=== PATIENT | male | born 1995 | race Caucasian/White ===

== ENCOUNTER 2016-09-13 16:35 | Emergency (ER) | payer BC, OTHER ==
[2016-09-13 17:05] VITALS: BP 127/77
--- NOTE | 2016-09-13 17:46 | EDM.PDOC ---
ED HPI GENERAL MEDICAL PROBLEM - General Chief Complaint: ENT Problem Stated Complaint: SWELLING OF MOUTH AFTER EATING Time Seen by Provider: 09/13/16 17:26 Source of Information: Reports: Patient History Limitations: Reports: No Limitations - History of Present Illness INITIAL COMMENTS - FREE TEXT/NARRATIVE: 21-year-old male presents for evaluation and treatment of swelling and discomfort in his mouth and throat. He states that the symptoms started today. He states that he feels the right side is worse than the left. He reports swelling to the hard palate of his mouth. He reports odynophagia. He feels that there is a sore on the roof of his mouth. He also feels that his throat is swelling. He denies any wheezing, difficulty breathing, fevers, chills, nausea or vomiting. Patient is a type I diabetic on insulin pump. He states that his sugars have been running in the 170s to 180s. Patient denies any new foods or fluids. Unidentified cause for the discomfort. Throat Pain Score (Numeric/FACES): 3 - Related Data Allergies Allergy/AdvReac Type Severity Reaction Status Date / Time No Known Allergies Allergy Verified 09/13/16 17:05 Home Meds: Home Meds Insulin Lispro [Humalog] 100 unit SQ DAILY 06/10/14 [History] Diphenhyd/Lidocaine/Nystatin [Magic Mouthwash] 15 ml PO QID #1 bottle 09/13/16 [ Rx] Hydrocodone/Acetaminophen [Hydrocodon-Acetaminophn 10-325] 1 tab PO TID [History] Methylphenidate [Ritalin] 20 mg PO DAILY 09/13/16 [History] Past Medical History Psychiatric History: Reports: ADHD Endocrine/Metabolic History: Reports: Diabetes, type I - Past Surgical History Musculoskeletal Surgical History: Reports: Other (see below) Other Musculoskeletal Surgeries/Procedures:: 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 Social & Family History - Tobacco Use Smoking Status *Q: Current Every Day Smoker Years of Tobacco use: 6 Packs/Tins Daily: 0.5 - Caffeine Use Caffeine Use: Reports: Energy drinks - Alcohol Use Days Per Week of Alcohol Use: 0 - Recreational Drug Use Recreational Drug Use: Yes Drug Use in Last 12 Months: Yes Recreational Drug Type: Reports: Marijuana/Hashish Recreational Drug Use Frequency: Socially ED ROS ENT - Review of Systems Review Of Systems: See Below Constitutional: Denies: Fever HEENT: Reports: Throat Pain, Throat Swelling Respiratory: Denies: Shortness of Breath GI/Abdominal: Denies: Nausea, Vomiting ED EXAM, ENT - Physical Exam Exam: See Below Exam Limited By: No Limitations General Appearance: Alert, WD/WN, No Apparent Distress Ears: Normal External Exam Nose: Normal Inspection Mouth/Throat: Normal Inspection, Oral Ulcers (anterior hard palate). No: Lip Swelling, Muffled Voice, Peritonsillar Mass, Throat Swelling, Tongue Swelling, Uvular Edema Respiratory/Chest: No Respiratory Distress, Lungs Clear, Normal Breath Sounds Cardiovascular: Normal Peripheral Pulses, Regular Rate, Rhythm, No Murmur Neurological: Alert, Oriented, Normal Cognition Psychiatric: Normal Affect, Normal Mood Skin: Warm, Dry, Normal Color Course - Vital Signs Last Recorded V/S: Last Vital Signs Temp 36.8 C 09/13/16 17:03 Pulse 78 09/13/16 18:18 Resp 18 09/13/16 18:18 BP 127/77 09/13/16 17:03 Pulse Ox 98 09/13/16 18:18 Departure - Departure Time of Disposition: 17:49 Disposition: Home, Self-Care 01 Condition: fair Clinical Impression: Viral stomatitis - Discharge Information Prescriptions: Diphenhyd/Lidocaine/Nystatin [Magic Mouthwash] 15 ml PO QID #1 bottle Instructions: Stomatitis, [id number] Referrals: PCP,Not In Area [Primary Care Provider] - Forms: ED Department Discharge Additional Instructions: Swish and spit 15mls of the magic mouth wash. OTC ibuprofen as needed for pain. Follow-up next week with PCP as planned. Please return to the ER should your symptoms change or worsen.
== END 2016-09-13 18:18 | disposition home or self-care (01) ==
LOC: JD.ED 16:35
DX: K12.1 Other forms of stomatitis (principal); E10.9 Type 1 diabetes mellitus without complications; F17.210 Nicotine dependence, cigarettes, uncomplicated; Z98.890 Other specified postprocedural states; Z79.899 Other long term (current) drug therapy
CPT/HCPCS: 99282; 99283

== ENCOUNTER 2019-10-04 02:02 | Inpatient (IN) | payer BC, OTHER ==
[2019-10-04] MEDS ORDERED: Lactated Ringers 1,000 ML IV ONE ×3 (02:22→05:25)
[2019-10-04] MEDS ORDERED: Ondansetron 4 MG/2 ML SDV IVPUSH ONE (02:24)
--- NOTE | 2019-10-04 02:34 | EDM.PDOC ---
ED HPI GENERAL MEDICAL PROBLEM - General Chief Complaint: Chest Pain Stated Complaint: CHEST PAIN/VOMITING Time Seen by Provider: 10/04/19 02:13 Source of Information: Reports: Patient History Limitations: Reports: No Limitations, Altered Mental Status - History of Present Illness INITIAL COMMENTS - FREE TEXT/NARRATIVE: Mr. 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 He denies prior similar symptoms. He was initially unable to provide much history , as he was laying on the gurney grunting and calling out, as if in extreme pain due to an IV being placed. He repeatedly asked for water, and was repeatedly told that because of his nausea, we did not want to give him anything orally, but was reassured that he will be getting IV fluid. He then vomited, and was calm thereafter. The patient did not take any oxmd-[id number] or home remedies prior to coming to the ED. Upon arrival, he was found to be hemodynamically stable, afebrile, saturating 100% on room air. The initial Accu-Chek was >400. The patient states that he has a continuous glucose monitor, but that he does not use it. He checks his blood sugar only about once a month, but he states that his blood sugars are rarely significantly elevated. He states that he has had DKA only once, when around 19 years old. Other than his current symptoms, the patient denies recent fever, chills, sore throat, ear pain, nasal or sinus congestion, cough, dyspnea, chest pain, palpitations, nausea, vomiting, constipation, diarrhea, abdominal pain, urinary symptoms, recent weight gain or weight loss, recent bloody bowel movements or black bowel movements, recent joint aches, headaches, or rashes. The patient's PCP is Roya Oates NP, in [place], [place]. Chest Pain Score (Numeric/FACES): 10 - Related Data Allergies Allergy/AdvReac Type Severity Reaction Status Date / Time No Known Allergies Allergy Verified 10/04/19 02:49 Home Meds: Home Meds Insulin Lispro [Humalog] 100 unit SQ DAILY 06/10/14 [History] Diphenhyd/Lidocaine/Nystatin [Magic Mouthwash] 15 ml PO QID #1 bottle 09/13/16 [ Rx] Hydrocodone/Acetaminophen [Hydrocodon-Acetaminophn 10-325] 1 tab PO TID [History] Methylphenidate [Ritalin] 20 mg PO DAILY 09/13/16 [History] Past Medical History Musculoskeletal History: Reports: Back Pain, Chronic (due to kyphosis, due to Scheuermanns disease) Psychiatric History: Reports: ADHD Endocrine/Metabolic History: Reports: Diabetes, Type I - Past Surgical History GI Surgical History: Reports: Hernia, Inguinal (right) Musculoskeletal Surgical History: Reports: Other (See Below) (2 back surgeries secondary to defects) Social & Family History - Tobacco Use Smoking Status *Q: Current Every Day Smoker Years of Tobacco use: 10 Packs/Tins Daily: 1 - Caffeine Use Caffeine Use: Reports: Energy Drinks - Alcohol Use Alcohol Use History: Yes Date/Time of Last Drink Comment: Drank heavily until Mar 2019 Alcohol Use Frequency: Rarely - Recreational Drug Use Recreational Drug Use: Yes Drug Use in Last 12 Months: Yes Recreational Drug Type: Reports: Marijuana/Hashish (smoked daily) - Living Situation & Occupation Living situation: Reports: Single, with Family (Mother, sister) 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 ED EXAM GENERAL NO PERIP PULSE - Physical Exam Exam: See Below Exam Limited By: No Limitations General Appearance: Alert, WD/WN, Mild Distress Eye Exam: Bilateral Eye: EOMI, Normal Inspection Ears: Normal External Exam, Hearing Grossly Normal Nose: Normal Inspection Throat/Mouth: Normal Inspection, Normal Lips, Normal Voice, No Airway Compromise Head: Atraumatic, Normocephalic Neck: Normal Inspection, Full Range of Motion Respiratory/Chest: No Respiratory Distress, Lungs Clear, Normal Breath Sounds, No Accessory Muscle Use Cardiovascular: Normal Peripheral Pulses, Regular Rate, Rhythm, No Edema, No Gallop, No JVD, No Murmur, No Rub GI/Abdominal: Normal Bowel Sounds, Soft, Non-Tender, No Organomegaly, No Distention, No Abnormal Bruit, No Mass (Male) Exam: Deferred Rectal (Males) Exam: Deferred Back Exam: Normal Inspection, Full Range of Motion, NT Extremities: Normal Inspection, Normal Range of Motion, No Pedal Edema, Normal Capillary Refill Neurological: Alert, No Motor/Sensory Deficits (moves all 4 extremities spontaneously) Psychiatric: Other (Unable to assess) Skin Exam: Warm, Dry, Intact, Normal Color, No Rash Lymphatic: No Adenopathy EKG INTERPRETATION EKG Date: 10/04/19 Time: 02:25 Rhythm: NSR Rate (Beats/Min): 80 [place]: Normal P-Wave: Present QRS: Normal ST-T: Normal QT: Normal Comparison: NA - No Prior EKG Course - Vital Signs Last Recorded V/S: Last Vital Signs Temp 36.8 C 10/04/19 02:02 Pulse 58 L 10/04/19 02:02 Resp 24 H 10/04/19 02:02 BP 112/53 L 10/04/19 02:02 Pulse Ox 99 10/04/19 02:02 - Orders/Labs/Meds Orders: Active Orders 24 hr Category Date Time Status Blood Glucose Check, Bedside [RC] ONETIME Care 10/04/19 05:08 Active EKG Documentation Completion [RC] STAT Care 10/04/19 02:20 Active Orthostatic Vital Signs [RC] STAT Care 10/04/19 02:20 Inactive CULTURE BLOOD [BC] Stat Lab 10/04/19 06:01 Received CULTURE BLOOD [BC] Stat Lab 10/04/19 06:12 Received CULTURE STREP A CONFIRMATION [RM] Stat Lab 10/04/19 02:54 Results LACTIC ACID [CHEM] Stat Lab 10/04/19 06:01 Received Rapid Strep w/culture conf [STREP SCRN A RAPID W CULT Lab 10/04/19 02:54 Results CONF] [RM] Stat Dextrose 5%-0.9% NaCl [Dextrose 5%-Normal Saline] 1,000 Med 10/04/19 06:45 Ordered ml IV ASDIRECTED Insulin Regular, Human [HumuLIN R] 100 unit Med 10/04/19 06:45 Ordered Sodium Chloride 0.9% [Normal Saline] 99 ml IV TITRATE Blood Culture x2 Reflex Set [OM.PC] Stat Oth 10/04/19 02:21 Ordered Medication Orders Dextrose/Sodium Chloride (Dextrose 5%-Normal Saline) 1,000 mls @ 250 mls/hr IV ASDIRECTED AVINASH Insulin Human Regular 100 unit (/ Sodium Chloride) 100 mls @ 7 mls/hr IV TITRATE AVINASH; Protocol Labs: Laboratory Tests 10/04/19 10/04/19 10/04/19 Range/Units 02:40 02:40 02:40 WBC 15.26 H (4.23-9.07) K/mm3 RBC 5.11 (4.63-6.08) M/mm3 Hgb 15.1 (13.7-17.5) gm/dl Hct 43.7 (40.1-51.0) % MCV 85.5 (79.0-92.2) fl MCH 29.5 (25.7-32.2) pg MCHC 34.6 (32.2-35.5) g/dl RDW Std Deviation 37.1 (35.1-43.9) fL Plt Count 224 (163-337) K/mm3 MPV 11.9 (9.4-12.3) fl Neutrophils % (Manual) 80 H (40-60) % Band Neutrophils % 1 (0-10) % Lymphocytes % (Manual) 15 L (20-40) % Atypical Lymphs % 0 % Monocytes % (Manual) 4 (2-10) % Eosinophils % (Manual) 0 L (0.8-7.0) % Basophils % (Manual) 0 L (0.2-1.2) Platelet Estimate Adequate RBC Morph Comment Normal PT 11.1 (9.7-12.0) SECONDS INR 1.02 APTT 23 (22-31) SECONDS D-Dimer, Quantitative < 0.19 L (0.19-0.50) mg/L Puncture Site ABG pH (7.35-7.45) ABG pCO2 (35.0-45.0) mmHg ABG pO2 (80.0-100.0) mmHg ABG HCO3 (22.0-26.0) meq/L ABG O2 Saturation (96.0-97.0) % ABG Base Excess (-2-2.0) Kana Test A-a Gradient mmHg O2 Delivery Device Oxygen Flow Rate FiO2 (21.00-100.00) % Sodium 131 L (136-145) mEq/L Potassium 4.4 (3.5-5.1) mEq/L Chloride 90 L (98-107) mEq/L Carbon Dioxide 15 L D (21-32) mEq/L Anion Gap 30.4 H (5-15) BUN 19 H (7-18) mg/dL Creatinine 1.4 H (0.7-1.3) mg/dL Est Cr Clr Drug Dosing 87.76 mL/min Estimated GFR (MDRD) > 60 (>60) mL/min BUN/Creatinine Ratio 13.6 L (14-18) Glucose 674 H* (74-106) mg/dL POC Glucose (70-105) mg/dL Calcium 10.0 (8.5-10.1) mg/dL Magnesium 1.9 (1.8-2.4) mg/dl Total Bilirubin 2.9 H (0.2-1.0) mg/dL AST 13 L (15-37) U/L ALT 24 (16-63) U/L Alkaline Phosphatase 95 (46-116) U/L Troponin I < 0.017 (0.00-0.056) ng/mL Total Protein 7.9 (6.4-8.2) g/dl Albumin 4.6 (3.4-5.0) g/dl Globulin 3.3 gm/dL Albumin/Globulin Ratio 1.4 (1-2) Urine Color (Yellow) Urine Appearance (Clear) Urine pH (5.0-8.0) Ur Specific Ozone (1.005-1.030) Urine Protein (Negative) Urine Glucose (UA) (Negative) Urine Ketones (Negative) Urine Occult Blood (Negative) Urine Nitrite (Negative) Urine Bilirubin (Negative) Urine Urobilinogen (0.2-1.0) Ur Leukocyte Esterase (Negative) Urine RBC (0-5) /hpf Urine WBC (0-5) /hpf Ur Squamous Epith Cells (0-5) /hpf Urine Bacteria (FEW) /hpf Urine Mucus (FEW) /hpf Urine Opiates Screen (BZVCVS=970) Ur Buprenorphine Scrn (CUTOFF=10) Ur Oxycodone Screen (CLM4UP=495) Urine Methadone Screen (CXP1OQ=223) Ur Propoxyphene Screen (XBUUNS=740) Ur Barbiturates Screen (DOBQCP=912) Ur Tricyclics Screen (ZUORSI=934) Ur Phencyclidine Scrn (CUTOFF=25) Ur Amphetamine Screen (FUCWUC=139) U Methamphetamines Scrn (WTPUTV=042) U Benzodiazepines Scrn (YDNXWG=828) U Cocaine Metab Screen (CBTVGQ=360) U Marijuana (THC) Screen (CUTOFF=50) Ketones (0.0-0.3) mM 10/04/19 10/04/19 10/04/19 Range/Units 02:40 03:10 04:10 WBC (4.23-9.07) K/mm3 RBC (4.63-6.08) M/mm3 Hgb (13.7-17.5) gm/dl Hct (40.1-51.0) % MCV (79.0-92.2) fl MCH (25.7-32.2) pg MCHC (32.2-35.5) g/dl RDW Std Deviation (35.1-43.9) fL Plt Count (163-337) K/mm3 MPV (9.4-12.3) fl Neutrophils % (Manual) (40-60) % Band Neutrophils % (0-10) % Lymphocytes % (Manual) (20-40) % Atypical Lymphs % % Monocytes % (Manual) (2-10) % Eosinophils % (Manual) (0.8-7.0) % Basophils % (Manual) (0.2-1.2) Platelet Estimate RBC Morph Comment PT (9.7-12.0) SECONDS INR APTT (22-31) SECONDS D-Dimer, Quantitative (0.19-0.50) mg/L Puncture Site Rt brachial ABG pH 7.31 L (7.35-7.45) ABG pCO2 8.4 L* (35.0-45.0) mmHg ABG pO2 48.0 L (80.0-100.0) mmHg ABG HCO3 4.2 L (22.0-26.0) meq/L ABG O2 Saturation 81.0 L (96.0-97.0) % ABG Base Excess -22.1 L (-2-2.0) Kana Test Positive A-a Gradient 91 mmHg O2 Delivery Device Room air Oxygen Flow Rate 0.0 FiO2 21.00 (21.00-100.00) % Sodium (136-145) mEq/L Potassium (3.5-5.1) mEq/L Chloride (98-107) mEq/L Carbon Dioxide (21-32) mEq/L Anion Gap (5-15) BUN (7-18) mg/dL Creatinine (0.7-1.3) mg/dL Est Cr Clr Drug Dosing mL/min Estimated GFR (MDRD) (>60) mL/min BUN/Creatinine Ratio (14-18) Glucose (74-106) mg/dL POC Glucose (70-105) mg/dL Calcium (8.5-10.1) mg/dL Magnesium (1.8-2.4) mg/dl Total Bilirubin (0.2-1.0) mg/dL AST (15-37) U/L ALT (16-63) U/L Alkaline Phosphatase (46-116) U/L Troponin I (0.00-0.056) ng/mL Total Protein (6.4-8.2) g/dl Albumin (3.4-5.0) g/dl Globulin gm/dL Albumin/Globulin Ratio (1-2) Urine Color Light yellow (Yellow) Urine Appearance Clear (Clear) Urine pH 6.0 (5.0-8.0) Ur Specific Ozone 1.020 (1.005-1.030) Urine Protein Negative (Negative) Urine Glucose (UA) 2+ H (Negative) Urine Ketones 3+ H (Negative) Urine Occult Blood Negative (Negative) Urine Nitrite Negative (Negative) Urine Bilirubin Negative (Negative) Urine Urobilinogen 0.2 (0.2-1.0) Ur Leukocyte Esterase Negative (Negative) Urine RBC Not seen (0-5) /hpf Urine WBC Not seen (0-5) /hpf Ur Squamous Epith Cells 0-5 (0-5) /hpf Urine Bacteria Not seen (FEW) /hpf Urine Mucus Not seen (FEW) /hpf Urine Opiates Screen (NHJZDU=562) Ur Buprenorphine Scrn (CUTOFF=10) Ur Oxycodone Screen (FWJ4UA=411) Urine Methadone Screen (TLW7UV=529) Ur Propoxyphene Screen (HNCLQU=847) Ur Barbiturates Screen (FGGAOK=461) Ur Tricyclics Screen (ABDWEM=943) Ur Phencyclidine Scrn (CUTOFF=25) Ur Amphetamine Screen (PYMWBO=569) U Methamphetamines Scrn (WVJPIV=510) U Benzodiazepines Scrn (WBWUIT=743) U Cocaine Metab Screen (SBKNCA=107) U Marijuana (THC) Screen (CUTOFF=50) Ketones 2.9 (0.0-0.3) mM 10/04/19 10/04/19 10/04/19 Range/Units 04:10 05:07 06:15 WBC (4.23-9.07) K/mm3 RBC (4.63-6.08) M/mm3 Hgb (13.7-17.5) gm/dl Hct (40.1-51.0) % MCV (79.0-92.2) fl MCH (25.7-32.2) pg MCHC (32.2-35.5) g/dl RDW Std Deviation (35.1-43.9) fL Plt Count (163-337) K/mm3 MPV (9.4-12.3) fl Neutrophils % (Manual) (40-60) % Band Neutrophils % (0-10) % Lymphocytes % (Manual) (20-40) % Atypical Lymphs % % Monocytes % (Manual) (2-10) % Eosinophils % (Manual) (0.8-7.0) % Basophils % (Manual) (0.2-1.2) Platelet Estimate RBC Morph Comment PT (9.7-12.0) SECONDS INR APTT (22-31) SECONDS D-Dimer, Quantitative (0.19-0.50) mg/L Puncture Site ABG pH (7.35-7.45) ABG pCO2 (35.0-45.0) mmHg ABG pO2 (80.0-100.0) mmHg ABG HCO3 (22.0-26.0) meq/L ABG O2 Saturation (96.0-97.0) % ABG Base Excess (-2-2.0) Akna Test A-a Gradient mmHg O2 Delivery Device Oxygen Flow Rate FiO2 (21.00-100.00) % Sodium (136-145) mEq/L Potassium (3.5-5.1) mEq/L Chloride (98-107) mEq/L Carbon Dioxide (21-32) mEq/L Anion Gap (5-15) BUN (7-18) mg/dL Creatinine (0.7-1.3) mg/dL Est Cr Clr Drug Dosing mL/min Estimated GFR (MDRD) (>60) mL/min BUN/Creatinine Ratio (14-18) Glucose (74-106) mg/dL POC Glucose 369 H 257 H (70-105) mg/dL Calcium (8.5-10.1) mg/dL Magnesium (1.8-2.4) mg/dl Total Bilirubin (0.2-1.0) mg/dL AST (15-37) U/L ALT (16-63) U/L Alkaline Phosphatase (46-116) U/L Troponin I (0.00-0.056) ng/mL Total Protein (6.4-8.2) g/dl Albumin (3.4-5.0) g/dl Globulin gm/dL Albumin/Globulin Ratio (1-2) Urine Color (Yellow) Urine Appearance (Clear) Urine pH (5.0-8.0) Ur Specific [place]zone (1.005-1.030) Urine Protein (Negative) Urine Glucose (UA) (Negative) Urine Ketones (Negative) Urine Occult Blood (Negative) Urine Nitrite (Negative) Urine Bilirubin (Negative) Urine Urobilinogen (0.2-1.0) Ur Leukocyte Esterase (Negative) Urine RBC (0-5) /hpf Urine WBC (0-5) /hpf Ur Squamous Epith Cells (0-5) /hpf Urine Bacteria (FEW) /hpf Urine Mucus (FEW) /hpf Urine Opiates Screen Presumptive positive H (HQRKBN=102) Ur Buprenorphine Scrn Negative (CUTOFF=10) Ur Oxycodone Screen Negative (XZR1MU=079) Urine Methadone Screen Negative (NDN0PJ=720) Ur Propoxyphene Screen Negative (RBOJFS=027) Ur Barbiturates Screen Negative (KWNTIS=894) Ur Tricyclics Screen Negative (PAVBTB=012) Ur Phencyclidine Scrn Negative (CUTOFF=25) Ur Amphetamine Screen Negative (XDGMXR=164) U Methamphetamines Scrn Negative (PDCBLG=745) U Benzodiazepines Scrn Negative (WBURRR=395) U Cocaine Metab Screen Negative (SWZHRQ=698) U Marijuana (THC) Screen Negative (CUTOFF=50) Ketones (0.0-0.3) mM Meds: Medications Generic Name Dose Route Start Last Admin Trade Name Freq PRN Reason Stop Dose Admin Dextrose/Sodium Chloride 1,000 mls @ 250 mls/hr 10/04/19 06:45 Dextrose 5%-Normal Saline IV ASDIRECTED AVINASH Insulin Human Regular 100 unit 100 mls @ 7 mls/hr 10/04/19 06:45 / Sodium Chloride IV TITRATE AVINASH Protocol 7 UNIT/HR Discontinued Medications Generic Name Dose Route Start Last Admin Trade Name Shin PRN Reason Stop Dose Admin Insulin Human Regular 100 unit 100 mls @ 0.5 mls/hr 10/04/19 02:30 10/04/19 05:22 / Sodium Chloride IV 0 units/kg/hr TITRATE AVINASH 0 mls/hr Titration Protocol 0.1 UNITS/KG/HR Lactated Ringer's 1,000 mls @ 999 mls/hr 10/04/19 02:22 10/04/19 02:38 Ringers, Lactated IV 10/04/19 03:22 999 mls/hr .BOLUS ONE Administration Lactated Ringer's 1,000 mls @ 999 mls/hr 10/04/19 04:00 10/04/19 04:07 Ringers, Lactated IV 10/04/19 05:00 999 mls/hr .BOLUS ONE Administration Insulin Human Regular 100 unit 100 mls @ 0.5 mls/hr 10/04/19 04:15 10/04/19 05:22 / Sodium Chloride IV 0.04 units/kg/hr TITRATE AVINASH 4 mls/hr Titration Protocol 0.1 UNITS/KG/HR Insulin Human Regular 100 unit 100 mls @ 4 mls/hr 10/04/19 05:30 / Sodium Chloride IV TITRATE AVINASH Protocol 4 UNIT/HR Lactated Ringer's 1,000 mls @ 999 mls/hr 10/04/19 05:25 10/04/19 05:32 Ringers, Lactated IV 10/04/19 06:25 999 mls/hr .BOLUS ONE Administration Insulin Human Regular 100 unit 100 mls @ 3 mls/hr 10/04/19 06:30 / Sodium Chloride IV TITRATE AVINASH Protocol 3 UNIT/HR Ondansetron HCl 4 mg 10/04/19 02:24 10/04/19 02:38 Zofran IVPUSH 10/04/19 02:25 4 mg ONETIME ONE Administration - Re-Assessments/Exams Free Text/Narrative Re-Assessment/Exam: 10/04/19 02:25 As above, the patient was brought to the ED by his mother for nausea, chest pain , and shoulder pain, however, acquiring a history from the patient is difficult , as he is, for the most part, just grunting and writhing around as if in agony , but the source of his pain is unknown. He is repeatedly requesting water, and has been repeatedly told that he will be given IV fluid. He is hemodynamically stable with a normal heart rate. His Accu-Chek is over 400 here in the ED. I have ordered a work-up that includes blood work, an ABG, 2 sets of blood cultures, a chest x-ray, a urinalysis and urine drug screen, and an ECG. In the meantime, the patient will be given IV fluid, an IV insulin drip , and IV Zofran. 10/04/19 02:54 Without treatment, the patient is now, and attempting to nap. When asked, he stated that he has a sore throat, therefore I swabbed him for a rapid strep test. 10/04/19 03:12 The patient's ABG represents a primary metabolic acidosis with superimposed respiratory alkalosis. The oxygen saturation, however, is 81%, whereas the patient's SpO2 is 100%, indicating that this may be a mixed venous sample. 10/04/19 03:32 The patient's blood glucose has returned significantly elevated at 674. 10/04/19 03:49 Two-view chest radiograph reviewed. The cardiac silhouette is within normal limits. No pulmonary vascular congestion. No pleural effusions. No focal infiltrate. No pneumothorax. Thoracolumbar spinal fixation lux noted. Formal read per the Radiologist pending. 10/04/19 05:21 The patient's blood glucose is down to 369, but 1 hour after his insulin drip was started. This rate of decline is too fast, therefore I have decreased his insulin drip to 4 units/h. We will also start a 3rd L of LR. 10/04/19 06:07 The patient's CBC is remarkable for a WBC count elevated at 15.26, but with only 1% bandemia. The remainder of his CBC is unremarkable. His CMP is remarkable for a sodium depressed at 131, which corrects to 139, chloride of 90, and a bicarbonate of 15, with an anion gap elevated at 30.4. His BUN/Cr are elevated at 19/1.4, and his blood glucose is significantly elevated at 674. The remainder of his CMP is unremarkable. His magnesium level is within normal limits at 1.9. His serum ketones are modestly elevated at 2.9. His troponin is undetectably low. His D-dimer is undetectably low. His coags are within normal limits. His urinalysis is remarkable for 2+ glucose and 3+ ketones, and is otherwise unremarkable. His urine drug screen is positive for opiates, and is otherwise negative. His rapid strep test returned negative. His lactic acid level has not yet resulted. 10/04/19 06:22 The patient's repeat blood glucose is down to 257, therefore I have further decreased his insulin drip to 3 units/h. 10/04/19 06:45 The patient's third liter of LR has finished. Because his blood glucose is close to 250, I have switched his IV fluid to D5 NS at 250 mL/h, and increased his insulin drip to 7 units/h. Case discussed with Dr. Torre at 06:40. She agreed with the IV fluid and insulin drip, and accepted the patient for admission to the ICU. She is aware that the lactic acid level is still pending. 10/04/19 06:47 The patient's lactic acid level has returned modestly elevated at 2.6. Departure - Departure Time of Disposition: 06:48 Disposition: Admitted As Inpatient 64 Condition: Fair Clinical Impression: Hyperglycemia due to type 1 diabetes mellitus, High anion gap metabolic acidosis, Renal insufficiency - Discharge Information *PRESCRIPTION DRUG MONITORING PROGRAM REVIEWED*: Not Applicable *COPY OF PRESCRIPTION DRUG MONITORING REPORT IN PATIENT JEANNIE: Not Applicable Referrals: PCP,Not In Area [Primary Care Provider] - Forms: ED Department Discharge Sepsis Event Note - Focused Exam Vital Signs: Vital Signs Temp Pulse Resp BP Pulse Ox 10/04/19 02:02 36.8 C 58 L 24 H 112/53 L 99 Date Exam was Performed: 10/04/19 Time Exam was Performed: 06:48 - My Orders Last 24 Hours: My Active Orders 10/04/19 02:20 EKG Documentation Completion [RC] STAT Orthostatic Vital Signs [RC] STAT 10/04/19 02:21 Blood Culture x2 Reflex Set [OM.PC] Stat 10/04/19 02:54 CULTURE STREP A CONFIRMATION [RM] Stat Rapid Strep w/culture conf [STREP SCRN A RAPID W CULT CONF] [RM] Stat 10/04/19 05:08 Blood Glucose Check, Bedside [RC] ONETIME 10/04/19 06:01 CULTURE BLOOD [BC] Stat LACTIC ACID [CHEM] Stat 10/04/19 06:12 CULTURE BLOOD [BC] Stat 10/04/19 06:45 Dextrose 5%-0.9% NaCl [Dextrose 5%-Normal Saline] 1,000 ml IV ASDIRECTED Insulin Regular, Human [HumuLIN R] 100 unit Sodium Chloride 0.9% [Normal Saline] 99 ml IV TITRATE - Assessment/Plan Last 24 Hours: My Active Orders 10/04/19 02:20 EKG Documentation Completion [RC] STAT Orthostatic Vital Signs [RC] STAT 10/04/19 02:21 Blood Culture x2 Reflex Set [OM.PC] Stat 10/04/19 02:54 CULTURE STREP A CONFIRMATION [] Stat Rapid Strep w/culture conf [STREP SCRN A RAPID W CULT CONF] [] Stat 10/04/19 05:08 Blood Glucose Check, Bedside [RC] ONETIME 10/04/19 06:01 CULTURE BLOOD [BC] Stat LACTIC ACID [CHEM] Stat 10/04/19 06:12 CULTURE BLOOD [BC] Stat 10/04/19 06:45 Dextrose 5%-0.9% NaCl [Dextrose 5%-Normal Saline] 1,000 ml IV ASDIRECTED Insulin Regular, Human [HumuLIN R] 100 unit Sodium Chloride 0.9% [Normal Saline] 99 ml IV TITRATE
--- NOTE | 2019-10-04 06:30 | CR ---
Chest: 2 views of the chest were obtained. Comparison: No prior chest imaging is available. Heart size and mediastinum is normal. Lungs are clear with no acute parenchymal change. Spinal fixation lux is identified throughout the visualized lumbar and most of the thoracic spine. Impression: 1. Extensive spine surgery. 2. Nothing acute is seen on 2 view chest x-ray. Diagnostic code #2 This report was dictated in MDT
[2019-10-04] MEDS: Dextrose 5%-0.9% NaCl 1,000 ML IV SCH ×2 (06:57→11:10)
--- NOTE | 2019-10-04 07:22 | PCM.HP.2 ---
H&P History of Present Illness - General Date of Service: 10/04/19 Admit Problem/Dx: Admission Diagnosis/Problem Admission Diagnosis/Problem Diabetic ketoacidosis - History of Present Illness Initial Comments - Free Text/Narative: Mr. 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 He denies prior similar symptoms. He was initially unable to provide much history , as he was laying on the gurney grunting and calling out, as if in extreme pain due to an IV being placed. He repeatedly asked for water, and was repeatedly told that because of his nausea, we did not want to give him anything orally, but was reassured that he will be getting IV fluid. He then vomited, and was calm thereafter. The patient did not take any [id number]-luxswxw or home remedies prior to coming to the ED. Upon arrival, he was found to be hemodynamically stable, afebrile, saturating 100% on room air. The initial Accu-Chek was >400. The patient states that he has a continuous glucose monitor, but that he does not use it. He checks his blood sugar only about once a month, but he states that his blood sugars are rarely significantly elevated. He states that he has had DKA only once, when around 19 years old. Other than his current symptoms, the patient denies recent fever, chills, sore throat, ear pain, nasal or sinus congestion, cough, dyspnea, chest pain, palpitations, nausea, vomiting, constipation, diarrhea, abdominal pain, urinary symptoms, recent weight gain or weight loss, recent bloody bowel movements or black bowel movements, recent joint aches, headaches, or rashes. Chest Pain Score (Numeric/FACES): 10 Back Pain Score (Numeric/FACES): 3 - Related Data Allergies/Adverse Reactions: Allergies Allergy/AdvReac Type Severity Reaction Status Date / Time No Known Allergies Allergy Verified 10/06/19 21:56 Home Medications: Home Meds Insulin Lispro [Humalog] 100 unit SQ DAILY 06/10/14 [History] Hydrocodone/Acetaminophen [Hydrocodon-Acetaminophn 10-325] 1 tab PO TID [History] Methylphenidate [Ritalin] 20 mg PO DAILY 09/13/16 [History] Past Medical History Musculoskeletal History: Reports: Back Pain, Chronic (due to kyphosis, due to Scheuermanns disease) Psychiatric History: Reports: ADHD Endocrine/Metabolic History: Reports: Diabetes, Type I - Past Surgical History GI Surgical History: Reports: Hernia, Inguinal (right) Musculoskeletal Surgical History: Reports: Other (See Below) (2 back surgeries secondary to defects) Social & Family History - Family History Family Medical History: Noncontributory - Tobacco Use Smoking Status *Q: Current Every Day Smoker Years of Tobacco use: 10 Packs/Tins Daily: 1 - Caffeine Use Caffeine Use: Reports: Energy Drinks - Recreational Drug Use Recreational Drug Use: Yes Drug Use in Last 12 Months: Yes Recreational Drug Type: Reports: Marijuana/Hashish (smoked daily) Recreational Drug Use Frequency: Socially - Living Situation & Occupation Living situation: Reports: Single, with Family (Mother, sister) 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 Exam - Exam Exam: See Below - Vital Signs Vital Signs: Last Vital Signs Temp 98.3 F 10/04/19 02:02 Pulse 58 L 10/04/19 02:02 Resp 24 H 10/04/19 02:02 BP 112/53 L 10/04/19 02:02 Pulse Ox 99 10/04/19 02:02 Weight: 90.718 kg - Exam Physical Exam Comments:: Exam Limited By: No Limitations General Appearance: Alert, WD/WN, Mild Distress Eye Exam: Bilateral Eye: EOMI, Normal Inspection Ears: Normal External Exam, Hearing Grossly Normal Nose: Normal Inspection Throat/Mouth: Normal Inspection, Normal Lips, Normal Voice, No Airway Compromise Head: Atraumatic, Normocephalic Neck: Normal Inspection, Full Range of Motion Respiratory/Chest: No Respiratory Distress, Lungs Clear, Normal Breath Sounds, No Accessory Muscle Use Cardiovascular: Normal Peripheral Pulses, Regular Rate, Rhythm, No Edema, No Gallop, No JVD, No Murmur, No Rub GI/Abdominal: Normal Bowel Sounds, Soft, Non-Tender, No Organomegaly, No Distention, No Abnormal Bruit, No Mass (Male) Exam: Deferred Rectal (Males) Exam: Deferred Back Exam: Normal Inspection, Full Range of Motion, NT Extremities: Normal Inspection, Normal Range of Motion, No Pedal Edema, Normal Capillary Refill Neurological: Alert, No Motor/Sensory Deficits (moves all 4 extremities spontaneously) Psychiatric: Other (Unable to assess) Skin Exam: Warm, Dry, Intact, Normal Color, No Rash Lymphatic: No Adenopathy - Patient Data Result Diagrams: 10/05/19 05:34 10/05/19 05:34 Sepsis Event Note - Evaluation Sepsis Screening Result: No Definite Risk - Focused Exam Vital Signs: Vital Signs Temp Pulse Resp BP Pulse Ox 10/04/19 02:02 98.3 F 58 L 24 H 112/53 L 99 Date Exam was Performed: 10/07/19 Time Exam was Performed: 20:31 - Problem List (1) Ketonemia SNOMED Code(s): 064912643 ICD Code: R79.89 - OTHER SPECIFIED ABNORMAL FINDINGS OF BLOOD CHEMISTRY Status: Acute (2) DKA (diabetic ketoacidoses) SNOMED Code(s): 547761797, 876343107 ICD Code: E11.10 - TYPE 2 DIABETES MELLITUS WITH KETOACIDOSIS WITHOUT COMA Status: Acute (3) Leukocytosis SNOMED Code(s): 199865735, 474660469 ICD Code: D72.829 - ELEVATED WHITE BLOOD CELL COUNT, UNSPECIFIED Status: Acute (4) Hyponatremia SNOMED Code(s): 51629987 ICD Code: E87.1 - HYPO-OSMOLALITY AND HYPONATREMIA Status: Acute (5) Chronic, continuous use of opioids SNOMED Code(s): 925233792 ICD Code: F11.90 - OPIOID USE, UNSPECIFIED, UNCOMPLICATED Status: Acute (6) Insulin pump in place SNOMED Code(s): 929904547 ICD Code: Z96.41 - PRESENCE OF INSULIN PUMP (EXTERNAL) (INTERNAL) Status: Acute (7) Medical non-compliance SNOMED Code(s): 945261242 ICD Code: Z91.19 - PATIENT'S NONCOMPLIANCE W OTH MEDICAL TREATMENT AND REGIMEN Status: Acute (8) High anion gap metabolic acidosis SNOMED Code(s): 36834121 ICD Code: E87.2 - ACIDOSIS Status: Acute (9) Hyperglycemia SNOMED Code(s): 46703407 ICD Code: R73.9 - HYPERGLYCEMIA, UNSPECIFIED Status: Acute (10) Type 1 diabetes SNOMED Code(s): 07935731 ICD Code: E10.9 - TYPE 1 DIABETES MELLITUS WITHOUT COMPLICATIONS Status: Acute Problem List Initiated/Reviewed/Updated: Yes Assessment/Plan Comment:: ASSESSMENT - Brought to the ED by his mother for nausea, chest pain, and shoulder pain for the past 2 hours. - He denies prior similar symptoms. - He was initially unable to provide much history, as he was laying on the gurney grunting and calling out, as if in extreme pain due to an IV being placed. - Upon arrival, he was found to be hemodynamically stable, afebrile, saturating 100% on room air. The initial Accu-Chek was >400. - The patient states that he has a continuous glucose monitor, but that he does not use it. - He checks his blood sugar only about once a month, but he states that his blood sugars are rarely significantly elevated. - He states that he has had DKA only once, when around 19 years old. DKA (diabetic ketoacidoses) Insulin pump in place Type 1 DM High anion gap metabolic acidosis Ketonemia Medication non-compliance - Insulin drip - Q4h BMP, Mg and phos - Q8h ketones - IVF as per protocol Chronic, continuous use of opioids Continue pain control PROPHYLAXIS: DVT- not indicated GI- not indicated CODE STATUS: FULL CODE DISPOSITION: Patient will be admitted to the ICU for insulin drip and DKA management.
[2019-10-04] MEDS ORDERED: Ondansetron 4 MG/2 ML SDV IV PRN (07:30)
[2019-10-04] MEDS ORDERED: Dextrose 10% in Water 1,000 ML IV SCH (07:30)
[2019-10-04] MEDS ORDERED: Acetaminophen 325 MG Tab PO PRN (07:30)
[2019-10-04 08:34] LABS: HEMOGLOBIN A1C 9.2 % (4.50-6.20)
[2019-10-04] MEDS: Enoxaparin 40 MG/0.4 ML Syringe SUBCUT SCH (09:38)
[2019-10-04] MEDS ORDERED: Magnesium Sulfate/Water 4 GM in Premix Bag 1 BAG IV ONE (10:00)
[2019-10-04] MEDS: Lactated Ringers 1,000 ML IV SCH ×2 (12:43→18:55)
[2019-10-04] MEDS ORDERED: Insulin Lispro 100 Units/ML 3 ML Vial ONE (15:00)
[2019-10-04] MEDS: Nicotine 21 MG/24 Hr Patch TRDERM SCH (15:44)
[2019-10-04] MEDS ORDERED: Insulin Lispro 100 Units/ML 3 ML Vial SUBCUT ONE ×2 (17:10→17:19)
[2019-10-04] MEDS: Acetaminophen/HYDROcodone 325-10 MG Tab PO SCH (21:13)
[2019-10-05] MEDS: Lactated Ringers 1,000 ML IV SCH ×2 (01:13→06:40)
[2019-10-05] MEDS ORDERED: Simethicone 80 MG Tab.Chew PO PRN (06:43)
[2019-10-05] MEDS ORDERED: Magnesium Sulfate/Water 2 GM in Premix Bag 1 BAG IV ONE (08:27)
[2019-10-05] MEDS ORDERED: METHYLPHENIDATE 20 MG PO SCH (09:00)
[2019-10-05] MEDS: Acetaminophen/HYDROcodone 325-10 MG Tab PO SCH ×2 (09:03→15:07)
[2019-10-05] MEDS: Enoxaparin 40 MG/0.4 ML Syringe SUBCUT SCH (09:03)
[2019-10-05] MEDS: Nicotine 21 MG/24 Hr Patch TRDERM SCH (09:07)
[2019-10-05] MEDS ORDERED: Bismuth Subsalicylate 262 MG/15 ML Susp 236 ML Bottle PO PRN (10:03)
--- NOTE | 2019-10-05 12:17 | PCM.PN ---
- General Info Date of Service: 10/05/19 - Patient Data Vitals - Most Recent: Last Vital Signs Temp 98.4 F 10/05/19 09:13 Pulse 73 10/05/19 09:13 Resp 18 10/05/19 09:13 BP 122/81 10/05/19 09:13 Pulse Ox 99 10/05/19 09:13 Weight - Most Recent: 89.358 kg I&O - Last 24 Hours: Intake & Output 10/04/19 10/05/19 10/05/19 22:59 06:59 14:59 Intake Total 100 2150 270 Output Total 600 Balance 100 1550 270 Lab Results Last 24 Hours: Laboratory Results - last 24 hr 10/04/19 10/04/19 10/04/19 Range/Units 11:58 11:58 12:52 WBC (4.23-9.07) K/mm3 RBC (4.63-6.08) M/mm3 Hgb (13.7-17.5) gm/dl Hct (40.1-51.0) % MCV (79.0-92.2) fl MCH (25.7-32.2) pg MCHC (32.2-35.5) g/dl RDW Std Deviation (35.1-43.9) fL Plt Count (163-337) K/mm3 MPV (9.4-12.3) fl Neut % (Auto) (34.0-67.9) % Lymph % (Auto) (21.8-53.1) % [place] % (Auto) (5.3-12.2) % Eos % (Auto) (0.8-7.0) Baso % (Auto) (0.1-1.2) % Neut # (Auto) (1.78-5.38) K/mm3 Lymph # (Auto) (1.32-3.57) K/mm3 [place] # (Auto) (0.30-0.82) K/mm3 Eos # (Auto) (0.04-0.54) K/mm3 Baso # (Auto) (0.01-0.08) K/mm3 Sodium 139 (136-145) mEq/L Potassium 4.0 (3.5-5.1) mEq/L Chloride 106 (98-107) mEq/L Carbon Dioxide 23 (21-32) mEq/L Anion Gap 14.0 (5-15) BUN 11 (7-18) mg/dL Creatinine 0.8 (0.7-1.3) mg/dL Est Cr Clr Drug Dosing 153.58 mL/min Estimated GFR (MDRD) > 60 (>60) mL/min BUN/Creatinine Ratio 13.8 L (14-18) Glucose 222 H (74-106) mg/dL POC Glucose 166 H (70-105) mg/dL Lactic Acid (0.4-2.0) mmol/L Calcium 8.6 (8.5-10.1) mg/dL Phosphorus 2.3 L (2.6-4.7) mg/dL Magnesium 2.1 (1.8-2.4) mg/dl Ketones 0.23 (0.0-0.3) mM 10/04/19 10/04/19 10/04/19 Range/Units 14:06 15:13 16:05 WBC (4.23-9.07) K/mm3 RBC (4.63-6.08) M/mm3 Hgb (13.7-17.5) gm/dl Hct (40.1-51.0) % MCV (79.0-92.2) fl MCH (25.7-32.2) pg MCHC (32.2-35.5) g/dl RDW Std Deviation (35.1-43.9) fL Plt Count (163-337) K/mm3 MPV (9.4-12.3) fl Neut % (Auto) (34.0-67.9) % Lymph % (Auto) (21.8-53.1) % [place] % (Auto) (5.3-12.2) % Eos % (Auto) (0.8-7.0) Baso % (Auto) (0.1-1.2) % Neut # (Auto) (1.78-5.38) K/mm3 Lymph # (Auto) (1.32-3.57) K/mm3 [place] # (Auto) (0.30-0.82) K/mm3 Eos # (Auto) (0.04-0.54) K/mm3 Baso # (Auto) (0.01-0.08) K/mm3 Sodium (136-145) mEq/L Potassium (3.5-5.1) mEq/L Chloride (98-107) mEq/L Carbon Dioxide (21-32) mEq/L Anion Gap (5-15) BUN (7-18) mg/dL Creatinine (0.7-1.3) mg/dL Est Cr Clr Drug Dosing mL/min Estimated GFR (MDRD) (>60) mL/min BUN/Creatinine Ratio (14-18) Glucose (74-106) mg/dL POC Glucose 158 H 239 H 262 H (70-105) mg/dL Lactic Acid (0.4-2.0) mmol/L Calcium (8.5-10.1) mg/dL Phosphorus (2.6-4.7) mg/dL Magnesium (1.8-2.4) mg/dl Ketones (0.0-0.3) mM 10/04/19 10/04/19 10/04/19 Range/Units 16:06 16:58 19:10 WBC (4.23-9.07) K/mm3 RBC (4.63-6.08) M/mm3 Hgb (13.7-17.5) gm/dl Hct (40.1-51.0) % MCV (79.0-92.2) fl MCH (25.7-32.2) pg MCHC (32.2-35.5) g/dl RDW Std Deviation (35.1-43.9) fL Plt Count (163-337) K/mm3 MPV (9.4-12.3) fl Neut % (Auto) (34.0-67.9) % Lymph % (Auto) (21.8-53.1) % [place] % (Auto) (5.3-12.2) % Eos % (Auto) (0.8-7.0) Baso % (Auto) (0.1-1.2) % Neut # (Auto) (1.78-5.38) K/mm3 Lymph # (Auto) (1.32-3.57) K/mm3 [place] # (Auto) (0.30-0.82) K/mm3 Eos # (Auto) (0.04-0.54) K/mm3 Baso # (Auto) (0.01-0.08) K/mm3 Sodium 139 (136-145) mEq/L Potassium 4.2 (3.5-5.1) mEq/L Chloride 104 (98-107) mEq/L Carbon Dioxide 20 L (21-32) mEq/L Anion Gap 19.2 H (5-15) BUN 11 (7-18) mg/dL Creatinine 0.8 (0.7-1.3) mg/dL Est Cr Clr Drug Dosing 153.58 mL/min Estimated GFR (MDRD) > 60 (>60) mL/min BUN/Creatinine Ratio 13.8 L (14-18) Glucose 295 H (74-106) mg/dL POC Glucose 336 H (70-105) mg/dL Lactic Acid (0.4-2.0) mmol/L Calcium 8.3 L (8.5-10.1) mg/dL Phosphorus 2.9 (2.6-4.7) mg/dL Magnesium 2.0 (1.8-2.4) mg/dl Ketones 1.34 (0.0-0.3) mM 10/04/19 10/04/19 10/04/19 Range/Units 19:10 19:10 21:12 WBC (4.23-9.07) K/mm3 RBC (4.63-6.08) M/mm3 Hgb (13.7-17.5) gm/dl Hct (40.1-51.0) % MCV (79.0-92.2) fl MCH (25.7-32.2) pg MCHC (32.2-35.5) g/dl RDW Std Deviation (35.1-43.9) fL Plt Count (163-337) K/mm3 MPV (9.4-12.3) fl Neut % (Auto) (34.0-67.9) % Lymph % (Auto) (21.8-53.1) % [place] % (Auto) (5.3-12.2) % Eos % (Auto) (0.8-7.0) Baso % (Auto) (0.1-1.2) % Neut # (Auto) (1.78-5.38) K/mm3 Lymph # (Auto) (1.32-3.57) K/mm3 [place] # (Auto) (0.30-0.82) K/mm3 Eos # (Auto) (0.04-0.54) K/mm3 Baso # (Auto) (0.01-0.08) K/mm3 Sodium 138 (136-145) mEq/L Potassium 3.9 (3.5-5.1) mEq/L Chloride 104 (98-107) mEq/L Carbon Dioxide 24 (21-32) mEq/L Anion Gap 13.9 (5-15) BUN 11 (7-18) mg/dL Creatinine 0.8 (0.7-1.3) mg/dL Est Cr Clr Drug Dosing 153.58 mL/min Estimated GFR (MDRD) > 60 (>60) mL/min BUN/Creatinine Ratio 13.8 L (14-18) Glucose 276 H (74-106) mg/dL POC Glucose 179 H (70-105) mg/dL Lactic Acid 0.9 (0.4-2.0) mmol/L Calcium 8.5 (8.5-10.1) mg/dL Phosphorus 2.1 L (2.6-4.7) mg/dL Magnesium 2.0 (1.8-2.4) mg/dl Ketones (0.0-0.3) mM 10/04/19 10/05/19 10/05/19 Range/Units 23:58 03:06 03:31 WBC (4.23-9.07) K/mm3 RBC (4.63-6.08) M/mm3 Hgb (13.7-17.5) gm/dl Hct (40.1-51.0) % MCV (79.0-92.2) fl MCH (25.7-32.2) pg MCHC (32.2-35.5) g/dl RDW Std Deviation (35.1-43.9) fL Plt Count (163-337) K/mm3 MPV (9.4-12.3) fl Neut % (Auto) (34.0-67.9) % Lymph % (Auto) (21.8-53.1) % [place] % (Auto) (5.3-12.2) % Eos % (Auto) (0.8-7.0) Baso % (Auto) (0.1-1.2) % Neut # (Auto) (1.78-5.38) K/mm3 Lymph # (Auto) (1.32-3.57) K/mm3 [place] # (Auto) (0.30-0.82) K/mm3 Eos # (Auto) (0.04-0.54) K/mm3 Baso # (Auto) (0.01-0.08) K/mm3 Sodium (136-145) mEq/L Potassium (3.5-5.1) mEq/L Chloride (98-107) mEq/L Carbon Dioxide (21-32) mEq/L Anion Gap (5-15) BUN (7-18) mg/dL Creatinine (0.7-1.3) mg/dL Est Cr Clr Drug Dosing mL/min Estimated GFR (MDRD) (>60) mL/min BUN/Creatinine Ratio (14-18) Glucose (74-106) mg/dL POC Glucose 106 H 42 L 87 (70-105) mg/dL Lactic Acid (0.4-2.0) mmol/L Calcium (8.5-10.1) mg/dL Phosphorus (2.6-4.7) mg/dL Magnesium (1.8-2.4) mg/dl Ketones (0.0-0.3) mM 10/05/19 10/05/19 10/05/19 Range/Units 05:34 05:34 06:02 WBC 8.72 (4.23-9.07) K/mm3 RBC 4.45 L (4.63-6.08) M/mm3 Hgb 13.5 L (13.7-17.5) gm/dl Hct 37.9 L (40.1-51.0) % MCV 85.2 (79.0-92.2) fl MCH 30.3 (25.7-32.2) pg MCHC 35.6 H (32.2-35.5) g/dl RDW Std Deviation 36.6 (35.1-43.9) fL Plt Count 185 (163-337) K/mm3 MPV 11.3 (9.4-12.3) fl Neut % (Auto) 64.5 (34.0-67.9) % Lymph % (Auto) 28.1 (21.8-53.1) % [place] % (Auto) 5.6 (5.3-12.2) % Eos % (Auto) 1.6 (0.8-7.0) Baso % (Auto) 0.2 (0.1-1.2) % Neut # (Auto) 5.62 H (1.78-5.38) K/mm3 Lymph # (Auto) 2.45 (1.32-3.57) K/mm3 [place] # (Auto) 0.49 (0.30-0.82) K/mm3 Eos # (Auto) 0.14 (0.04-0.54) K/mm3 Baso # (Auto) 0.02 (0.01-0.08) K/mm3 Sodium 141 (136-145) mEq/L Potassium 3.9 (3.5-5.1) mEq/L Chloride 105 (98-107) mEq/L Carbon Dioxide 23 (21-32) mEq/L Anion Gap 16.9 H (5-15) BUN 7 (7-18) mg/dL Creatinine 0.7 (0.7-1.3) mg/dL Est Cr Clr Drug Dosing 175.52 mL/min Estimated GFR (MDRD) > 60 (>60) mL/min BUN/Creatinine Ratio 10.0 L (14-18) Glucose 187 H (74-106) mg/dL POC Glucose 260 H (70-105) mg/dL Lactic Acid (0.4-2.0) mmol/L Calcium 8.3 L (8.5-10.1) mg/dL Phosphorus 3.3 (2.6-4.7) mg/dL Magnesium 1.7 L (1.8-2.4) mg/dl Ketones (0.0-0.3) mM 10/04/20 Range/Units 09:06 WBC (4.23-9.07) K/mm3 RBC (4.63-6.08) M/mm3 Hgb (13.7-17.5) gm/dl Hct (40.1-51.0) % MCV (79.0-92.2) fl MCH (25.7-32.2) pg MCHC (32.2-35.5) g/dl RDW Std Deviation (35.1-43.9) fL Plt Count (163-337) K/mm3 MPV (9.4-12.3) fl Neut % (Auto) (34.0-67.9) % Lymph % (Auto) (21.8-53.1) % [place] % (Auto) (5.3-12.2) % Eos % (Auto) (0.8-7.0) Baso % (Auto) (0.1-1.2) % Neut # (Auto) (1.78-5.38) K/mm3 Lymph # (Auto) (1.32-3.57) K/mm3 [place] # (Auto) (0.30-0.82) K/mm3 Eos # (Auto) (0.04-0.54) K/mm3 Baso # (Auto) (0.01-0.08) K/mm3 Sodium (136-145) mEq/L Potassium (3.5-5.1) mEq/L Chloride (98-107) mEq/L Carbon Dioxide (21-32) mEq/L Anion Gap (5-15) BUN (7-18) mg/dL Creatinine (0.7-1.3) mg/dL Est Cr Clr Drug Dosing mL/min Estimated GFR (MDRD) (>60) mL/min BUN/Creatinine Ratio (14-18) Glucose (74-106) mg/dL POC Glucose 171 H (70-105) mg/dL Lactic Acid (0.4-2.0) mmol/L Calcium (8.5-10.1) mg/dL Phosphorus (2.6-4.7) mg/dL Magnesium (1.8-2.4) mg/dl Ketones (0.0-0.3) mM [place] Results Last 24 Hours: Microbiology 10/04/19 02:54 Quick Strep Confirmation Culture - Preliminary Throat Group A Streptococcus Rapid Screen - Final NEGATIVE STREP A SCREEN REFERENCE RANGE: NEGATIVE 10/04/19 06:12 Aerobic Blood Culture - Preliminary Blood - Venous - Lab Draw NO GROWTH AFTER 1 DAY Anaerobic Blood Culture - Final 10/04/19 06:01 Aerobic Blood Culture - Preliminary Blood - Venous NO GROWTH AFTER 1 DAY Anaerobic Blood Culture - Preliminary NO GROWTH AFTER 1 DAY Med Orders - Current: Current Medications Acetaminophen (Tylenol) 650 mg PO Q4H PRN PRN Reason: Pain (Mild 1-3)/fever Last Admin: 10/04/19 17:07 Dose: 650 mg Hydrocodone Bitart/Acetaminophen ([place] 325-10 Mg) 1 tab PO TID AVINASH Last Admin: 10/05/19 09:03 Dose: 1 tab Bismuth Subsalicylate (Pepto Bismol) 30 ml PO Q2H PRN PRN Reason: Dyspepsia Enoxaparin Sodium (Lovenox) 40 mg SUBCUT DAILY [facility] Last Admin: 10/05/19 09:03 Dose: 40 mg Miscellaneous Information (Remove Patch) 0 ea TRDERM DAILY AVINASH Last Admin: 10/05/19 09:10 Dose: 1 ea Nicotine (Habitrol) 21 mg TRDERM DAILY [facility] Last Admin: 10/05/19 09:07 Dose: 21 mg Ondansetron HCl (Zofran) 4 mg IV Q6H PRN PRN Reason: Nausea/Vomiting Methylphenidate [ Ritalin] 20 Mg [place]aps[place] Patient's Own Med 0 each PO DAILY [facility] Last Admin: 10/05/19 09:11 Dose: Not Given Simethicone (Simethicone) 80 mg PO Q6H PRN PRN Reason: bloating Last Admin: 10/05/19 06:48 Dose: 80 mg Discontinued Medications Insulin Human Regular 100 unit (/ Sodium Chloride) 100 mls @ 0.5 mls/hr IV TITRATE AVINASH; Protocol Last Titration: 10/04/19 05:22 Dose: 0 units/kg/hr, 0 mls/hr Lactated Ringer's (Ringers, Lactated) 1,000 mls @ 999 mls/hr IV .BOLUS ONE Stop: 10/04/19 03:22 Last Admin: 10/04/19 02:38 Dose: 999 mls/hr Lactated Ringer's (Ringers, Lactated) 1,000 mls @ 999 mls/hr IV .BOLUS ONE Stop: 10/04/19 05:00 Last Admin: 10/04/19 04:07 Dose: 999 mls/hr Insulin Human Regular 100 unit (/ Sodium Chloride) 100 mls @ 0.5 mls/hr IV TITRATE AVINASH; Protocol Last Titration: 10/04/19 12:53 Dose: Infused Insulin Human Regular 100 unit (/ Sodium Chloride) 100 mls @ 4 mls/hr IV TITRATE AVINASH; Protocol Lactated Ringer's (Ringers, Lactated) 1,000 mls @ 999 mls/hr IV .BOLUS ONE Stop: 10/04/19 06:25 Last Admin: 10/04/19 05:32 Dose: 999 mls/hr Insulin Human Regular 100 unit (/ Sodium Chloride) 100 mls @ 3 mls/hr IV TITRATE AVINASH; Protocol Dextrose/Sodium Chloride (Dextrose 5%-Normal Saline) 1,000 mls @ 250 mls/hr IV ASDIRECTED AVINASH Last Admin: 10/04/19 11:10 Dose: 250 mls/hr Insulin Human Regular 100 unit (/ Sodium Chloride) 100 mls @ 7 mls/hr IV TITRATE AVINASH; Protocol Dextrose/Water (Dextrose 10% In Water) 1,000 mls @ 40 mls/hr IV ASDIRECTED AVINASH Stop: 10/05/19 08:31 Last Admin: 10/04/19 12:10 Dose: 40 mls/hr Lactated Ringer's (Ringers, Lactated) 1,000 mls @ 150 mls/hr IV ASDIRECTED AVINASH Last Admin: 10/05/19 06:40 Dose: 150 mls/hr Magnesium Sulfate 4 gm/ Premix 50 mls @ 12.5 mls/hr IV ONETIME ONE Stop: 10/04/19 13:59 Last Admin: 10/04/19 10:29 Dose: 12.5 mls/hr Magnesium Sulfate 2 gm/ Premix 50 mls @ 25 mls/hr IV ONETIME ONE Stop: 10/05/19 10:26 Last Admin: 10/05/19 09:08 Dose: 25 mls/hr Insulin Human Lispro (Humalog) 1,000 unit .XX ONETIME ONE Stop: 10/04/19 15:01 Last Admin: 10/04/19 16:24 Dose: 1,000 unit Insulin Human Lispro (Humalog) 10 unit SUBCUT ONETIME ONE Stop: 10/05/19 17:11 Insulin Human Lispro (Humalog) 10 unit SUBCUT ONETIME ONE Stop: 10/04/19 17:11 Last Admin: 10/04/19 17:20 Dose: 10 unit Insulin Human Lispro (Humalog) 10 unit SUBCUT ONETIME ONE Stop: 10/04/19 17:20 Last Admin: 10/04/19 18:03 Dose: 10 unit Ondansetron HCl (Zofran) 4 mg IVPUSH ONETIME ONE Stop: 10/04/19 02:25 Last Admin: 10/04/19 02:38 Dose: 4 mg Sepsis Event Note - Evaluation Sepsis Screening Result: No Definite Risk - Focused Exam Vital Signs: Vital Signs Temp Pulse Resp BP Pulse Ox Pulse Ox 10/05/19 09:13 98.4 F 73 18 122/81 99 10/05/19 06:32 99 10/05/19 03:11 97.5 F 62 16 95/62 99 Date Exam was Performed: 10/05/19 Time Exam was Performed: 12:17 - My Orders Last 24 Hours: My Active Orders 10/04/19 15:30 Nicotine [Habitrol] 21 mg TRDERM DAILY 10/04/19 17:10 Admission Status [Patient Status] [ADT] Routine 10/04/19 19:29 Communication Order [RC] ASDIRECTED 10/04/19 21:00 Blood Glucose Check, Bedside [RC] Q3HR Acetaminophen/HYDROcodone [[place] 325-10 MG] 1 tab PO TID 10/05/19 06:43 Simethicone 80 mg PO Q6H PRN 10/05/19 09:00 Patient's Own Medication [Ptom] 0 each PO DAILY Remove Patch 0 ea TRDERM DAILY 10/05/19 10:03 Bismuth Subsalicylate [Pepto Bismol] 30 ml PO Q2H PRN
[2019-10-05 13:16] VITALS: BP 143/95; PULSE 79
[2019-10-05] MEDS ORDERED: Insulin Lispro 100 Units/ML 3 ML Vial SUBCUT ONE (17:10)
--- NOTE | 2019-10-07 02:04 | PCM.DCSUM1 ---
Discharge Summary - Hospital Course HPI Initial Comments: Mr. 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 He denies prior similar symptoms. He was initially unable to provide much history , as he was laying on the gurney grunting and calling out, as if in extreme pain due to an IV being placed. He repeatedly asked for water, and was repeatedly told that because of his nausea, we did not want to give him anything orally, but was reassured that he will be getting IV fluid. He then vomited, and was calm thereafter. The patient did not take any [id number] or home remedies prior to coming to the ED. Upon arrival, he was found to be hemodynamically stable, afebrile, saturating 100% on room air. The initial Accu-Chek was >400. The patient states that he has a continuous glucose monitor, but that he does not use it. He checks his blood sugar only about once a month, but he states that his blood sugars are rarely significantly elevated. He states that he has had DKA only once, when around 19 years old. Other than his current symptoms, the patient denies recent fever, chills, sore throat, ear pain, nasal or sinus congestion, cough, dyspnea, chest pain, palpitations, nausea, vomiting, constipation, diarrhea, abdominal pain, urinary symptoms, recent weight gain or weight loss, recent bloody bowel movements or black bowel movements, recent joint aches, headaches, or rashes. - Discharge Data Discharge Date: 10/06/19 Discharge Disposition: Against Medical Advice 07 Condition: Good - Referral to Home Health Primary Care Physician: PCP Not In Area - Discharge Diagnosis/Problem(s) (1) High anion gap metabolic acidosis SNOMED Code(s): 47037047 ICD Code: E87.2 - ACIDOSIS Status: Acute (2) Hyperglycemia due to type 1 diabetes mellitus SNOMED Code(s): 966385524528258, 420291689289594 ICD Code: E10.65 - TYPE 1 DIABETES MELLITUS WITH HYPERGLYCEMIA Status: Acute (3) Chronic, continuous use of opioids SNOMED Code(s): 594335234 ICD Code: F11.90 - OPIOID USE, UNSPECIFIED, UNCOMPLICATED Status: Acute (4) DKA (diabetic ketoacidoses) SNOMED Code(s): 949599493, 583405497 ICD Code: E11.10 - TYPE 2 DIABETES MELLITUS WITH KETOACIDOSIS WITHOUT COMA Status: Acute (5) Hyponatremia SNOMED Code(s): 32421020 ICD Code: E87.1 - HYPO-OSMOLALITY AND HYPONATREMIA Status: Acute (6) Insulin pump in place SNOMED Code(s): 167615012 ICD Code: Z96.41 - PRESENCE OF INSULIN PUMP (EXTERNAL) (INTERNAL) Status: Acute (7) Ketonemia SNOMED Code(s): 856100171 ICD Code: R79.89 - OTHER SPECIFIED ABNORMAL FINDINGS OF BLOOD CHEMISTRY Status: Acute (8) Leukocytosis SNOMED Code(s): 957934313, 066438339 ICD Code: D72.829 - ELEVATED WHITE BLOOD CELL COUNT, UNSPECIFIED Status: Acute (9) Medical non-compliance SNOMED Code(s): 808384049 ICD Code: Z91.19 - PATIENT'S NONCOMPLIANCE W OTH MEDICAL TREATMENT AND REGIMEN Status: Acute - Patient Summary/Data Consults: Consultations 10/04/19 07:30 Consult to Diabetic Nurse Specialist [CONS] Routine Consult to Printed Circuit Board Designer [CONS] Routine 10/04/19 07:32 Respiratory Care Assess and Treatment [CONS] Routine Hospital Course: Patient admitted to ICU for DKA management on protocol Drip was discontinued and patient was transitioned to insulin pump Transferred out of ICU Patient decided to leave AMA Refer to nursing note for details - Patient Instructions Diet: Diabetic Diet - Discharge Plan *PRESCRIPTION DRUG MONITORING PROGRAM REVIEWED*: Not Applicable *COPY OF PRESCRIPTION DRUG MONITORING REPORT IN PATIENT JEANNIE: Not Applicable Home Medications: Home Meds Insulin Lispro [Humalog] 100 unit SQ DAILY 06/10/14 [History] Hydrocodone/Acetaminophen [Hydrocodon-Acetaminophn 10-325] 1 tab PO TID [History] Methylphenidate [Ritalin] 20 mg PO DAILY 09/13/16 [History] Patient Handouts: Steps to Quit Smoking Forms: ED Department Discharge - Discharge Summary/Plan Comment DC Time >30 min.: No - General Info Date of Service: 10/05/19 Subjective Update: Slept [place] Tolerating diet No complaints - Patient Data Vitals - Most Recent: Last Vital Signs Temp 97.9 F 10/05/19 12:36 Pulse 79 10/05/19 12:36 Resp 18 10/05/19 12:36 BP 143/95 H 10/05/19 12:36 Pulse Ox 100 10/05/19 12:36 Weight - Most Recent: 89.358 kg - Exam General: Reports: Alert, Oriented, Cooperative, No Acute Distress HEENT: Reports: Pupils Equal, Pupils Reactive, EOMI, Mucous Membr. Moist/[place] Neck: Reports: Supple, Trachea Midline, No JVD, No Thyromegaly Lungs: Reports: Clear to Auscultation, Normal Respiratory Effort. Denies: Crackles, Rales, Rhonchi, Rub, Stridor, Wheezing Cardiovascular: Reports: Regular Rate, Regular Rhythm. Denies: Murmurs, Gallops , Rubs GI/Abdominal Exam: Normal Bowel Sounds, Soft, Non-Tender. No: Distended, Guarding, Rigid, Rebound Extremities: Normal Inspection, Normal Range of Motion, No Pedal Edema Neurological: Reports: No New Focal Deficit
== END 2019-10-05 15:55 | disposition left against medical advice (07) | DRG 420 ==
LOC: JD.ED 02:02 → JD.ICU 06:53 → JD.MS 17:10
PROVIDERS: ADMIT Internal Medicine; ATTEND Internal Medicine
DX: E10.10 Type 1 diabetes mellitus with ketoacidosis without coma (principal); F90.9 Attention-deficit hyperactivity disorder, unspecified type; F17.200 Nicotine dependence, unspecified, uncomplicated; E87.1 Hypo-osmolality and hyponatremia; Z96.41 Presence of insulin pump (external) (internal); Z91.19 Patient's noncompliance with other medical treatment and regimen
CPT/HCPCS: 36415; 36600; 71046; 71046-26; 80048; 80053; 80061; 80306; 81001; 82009; 82803; 82962; 83036; 83605; 83735; 84100; 84484; 85007; 85025; 85027; 85379; 85610; 85730; 87040; 87077; 87081; 87430; 93005; 96361; 96365; 96366; 96375; 99222; 99238; 99285-25; A9270-GY; J1650; J1815-GY; J2405; J3475; J7042; J7050; J7120

== ENCOUNTER 2019-10-06 21:42 | Emergency (ER) | payer BC ==
[2019-10-06 21:56] VITALS: BP 111/75; PULSE 100
--- NOTE | 2019-10-06 22:20 | EDM.PDOC ---
ED HPI GENERAL MEDICAL PROBLEM - General Chief Complaint: Diabetic Complaint Stated Complaint: HIGH BLOOD SUGAR 400+ Time Seen by Provider: 10/06/19 22:19 - History of Present Illness INITIAL COMMENTS - FREE TEXT/NARRATIVE: 24-year-old type I diabetic presents the emergency room with elevated blood sugars. Patient noticed his blood sugar was over 400. Patient recently left the hospital after being an inpatient. Apparently he left AMA. Tonight the patient noticed his blood sugar was over 400 he does not know if his pump is working. His blood sugar monitor said he was low he then tried to turn off his pump and then he shot up to over 400 and now he is having difficulty getting it back under control. The patient is quite anxious this time. The patient developed some nausea and vomiting shortly before arrival and his neck is bothering him somewhat. Patient denies any chest pain chest pressure no breathing difficulties or shortness of breath. He really has no other complaints at this point. - Related Data Allergies Allergy/AdvReac Type Severity Reaction Status Date / Time No Known Allergies Allergy Verified 10/06/19 21:56 Home Meds: Home Meds Insulin Lispro [Humalog] 100 unit SQ DAILY 06/10/14 [History] Hydrocodone/Acetaminophen [Hydrocodon-Acetaminophn 10-325] 1 tab PO TID [History] Methylphenidate [Ritalin] 20 mg PO DAILY 09/13/16 [History] Past Medical History HEENT History: Reports: None Cardiovascular History: Reports: None Respiratory History: Reports: Asthma Gastrointestinal History: Reports: Other (See Below) Other Gastrointestinal History: stomach ulcers Genitourinary History: Reports: None Musculoskeletal History: Reports: Back Pain, Chronic Neurological History: Reports: None Psychiatric History: Reports: ADHD, Anxiety, Depression Endocrine/Metabolic History: Reports: Diabetes, Type I 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: [employer] Type of Insulin Used in Pump: humalog When was Your Last Insulin Site/Set Changed: 10/03/2019 Do You Have Enough Pump Supplies for Your Hospital Stay: No Who Manages Your Pump: Patient (Self) Basal Rate (Units/hr): 2.5 Hematologic History: Reports: None Immunologic History: Reports: None Oncologic (Cancer) History: Reports: None Dermatologic History: Reports: Eczema - Past Surgical History GI Surgical History: Reports: Hernia, Inguinal Neurological Surgical History: Reports: Spinal Fusion Musculoskeletal Surgical History: Reports: Other (See Below) Social & Family History - Family History Family Medical History: Noncontributory - Tobacco Use Smoking Status *Q: Current Every Day Smoker Years of Tobacco use: 10 Packs/Tins Daily: 0.5 - Caffeine Use Caffeine Use: Reports: Coffee, Energy Drinks, Soda, Tea - Recreational Drug Use Recreational Drug Use: Yes Recreational Drug Type: Reports: Marijuana/Hashish Recreational Drug Use Frequency: Daily - Living Situation & Occupation Living situation: Reports: Single, with Family (Mother, sister) 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, [employer]) ED ROS GENERAL - Review of Systems Review Of Systems: See Below Constitutional: Reports: No Symptoms, Weight Gain Respiratory: Reports: No Symptoms Cardiovascular: Reports: No Symptoms Endocrine: Reports: No Symptoms GI/Abdominal: Reports: Nausea : Reports: No Symptoms Musculoskeletal: Reports: No Symptoms Skin: Reports: No Symptoms Neurological: Reports: No Symptoms ED EXAM GENERAL NO PERIP PULSE - Physical Exam Exam: See Below Exam Limited By: No Limitations General Appearance: Alert, No Apparent Distress Eye Exam: Bilateral Eye: Normal Inspection Ears: Normal External Exam, Normal Canal, Hearing Grossly Normal, Normal TMs Nose: Normal Inspection, Normal Mucosa, No Blood Throat/Mouth: Normal Inspection, Normal Lips, Normal Teeth, Normal Gums, Normal Oropharynx, Normal Voice, No Airway Compromise Head: Atraumatic, Normocephalic Neck: Normal Inspection, Supple, Non-Tender, Full Range of Motion Respiratory/Chest: No Respiratory Distress, Lungs Clear, Normal Breath Sounds, No Accessory Muscle Use, Chest Non-Tender Cardiovascular: Normal Peripheral Pulses, Regular Rate, Rhythm, No Edema, No Gallop, No JVD, No Murmur, No Rub GI/Abdominal: Normal Bowel Sounds, Soft, Non-Tender Back Exam: Normal Inspection, Full Range of Motion. No: CVA Tenderness (L), CVA Tenderness (R) Extremities: Normal Inspection, No Pedal Edema Neurological: Alert, Oriented, Normal Cognition Course - Vital Signs Last Recorded V/S: Last Vital Signs Temp 36.8 C 10/06/19 21:49 Pulse 100 10/06/19 21:49 Resp 18 10/06/19 21:49 BP 111/75 10/06/19 21:49 Pulse Ox 95 10/06/19 21:49 - Orders/Labs/Meds Orders: Active Orders 24 hr Category Date Time Status ABG [RT Arterial Blood Gases, ABG] [RC] Click to Edit Care 10/06/19 23:38 Inactive Blood Glucose Check, Bedside [] ONETIME Care 10/06/19 22:07 Active EKG Documentation Completion [RC] STAT Care 10/06/19 22:29 Active CULTURE BLOOD [BC] Stat Lab 10/06/19 23:25 Received CULTURE BLOOD [BC] Stat Lab 10/06/19 23:53 Received KETONES,BLOOD [CHEM] Stat Lab 10/07/19 05:50 Ordered POTASSIUM,K [CHEM] Stat Lab 10/07/19 05:50 Ordered Dextrose 5%-0.9% NaCl [Dextrose 5%-Normal Saline] 1,000 Med 10/07/19 05:00 Active ml IV ASDIRECTED NS + KCl 20mEq/L [Normal Saline with 20 mEq KCl] 1,000 Med 10/07/19 00:45 Active ml IV ASDIRECTED NS + KCl 20mEq/L [Normal Saline with 20 mEq KCl] 1,000 Med 10/07/19 03:08 Active ml IV ASDIRECTED Potassium Chloride [KCl 10 MEQ in Water 100 ML] 10 meq Med 10/07/19 05:00 Active Premix Bag 1 bag IV ASDIRECTED Sodium Chloride 0.9% [Normal Saline] 1,000 ml Med 10/07/19 04:00 Active IV ASDIRECTED Blood Culture x2 Reflex Set [OM.PC] Stat Oth 10/06/19 23:25 Ordered Medication Orders Potassium Chloride/Sodium Chloride (Normal Saline With 20 Meq Kcl) 1,000 mls @ 500 mls/hr IV ASDIRECTED AVINASH Last Admin: 10/07/19 00:54 Dose: 500 mls/hr Potassium Chloride/Sodium Chloride (Normal Saline With 20 Meq Kcl) 1,000 mls @ 500 mls/hr IV ASDIRECTED AVINASH Last Admin: 10/07/19 03:12 Dose: 500 mls/hr Sodium Chloride (Normal Saline) 1,000 mls @ 500 mls/hr IV ASDIRECTED AVINASH Last Admin: 10/07/19 04:05 Dose: 500 mls/hr Dextrose/Sodium Chloride (Dextrose 5%-Normal Saline) 1,000 mls @ 250 mls/hr IV ASDIRECTED AVINASH Last Admin: 10/07/19 04:59 Dose: 250 mls/hr Potassium Chloride 10 meq/ (Premix) 100 mls @ 100 mls/hr IV ASDIRECTED AVINASH Last Admin: 10/07/19 04:59 Dose: 100 mls/hr Labs: Laboratory Tests 10/06/19 10/06/19 10/06/19 Range/Units 22:30 22:30 22:30 WBC 12.13 H (4.23-9.07) K/mm3 RBC 4.76 (4.63-6.08) M/mm3 Hgb 14.0 (13.7-17.5) gm/dl Hct 40.9 (40.1-51.0) % MCV 85.9 (79.0-92.2) fl MCH 29.4 (25.7-32.2) pg MCHC 34.2 (32.2-35.5) g/dl RDW Std Deviation 37.1 (35.1-43.9) fL Plt Count 240 (163-337) K/mm3 MPV 11.1 (9.4-12.3) fl Neutrophils % (Manual) 82 H (40-60) % Band Neutrophils % 1 (0-10) % Lymphocytes % (Manual) 14 L (20-40) % Atypical Lymphs % 0 % Monocytes % (Manual) 2 (2-10) % Eosinophils % (Manual) 1 (0.8-7.0) % Basophils % (Manual) 0 L (0.2-1.2) Platelet Estimate Adequate RBC Morph Comment Normal ABG pH (7.35-7.45) ABG pCO2 (35.0-45.0) mmHg ABG HCO3 (22.0-26.0) meq/L ABG Base Excess (-2-2.0) O2 Delivery Device FiO2 (21.00-100.00) % Blood Gas Comments Sodium 135 L (136-145) mEq/L Potassium 4.2 (3.5-5.1) mEq/L Chloride 96 L (98-107) mEq/L Carbon Dioxide 21 (21-32) mEq/L Anion Gap 22.2 H (5-15) BUN 9 (7-18) mg/dL Creatinine 1.0 (0.7-1.3) mg/dL Est Cr Clr Drug Dosing 122.87 mL/min Estimated GFR (MDRD) > 60 (>60) mL/min BUN/Creatinine Ratio 9.0 L (14-18) Glucose 490 H (74-106) mg/dL POC Glucose (70-105) mg/dL Lactic Acid 2.4 H* (0.4-2.0) mmol/L Calcium 9.9 D (8.5-10.1) mg/dL Total Bilirubin 1.5 H (0.2-1.0) mg/dL AST 20 (15-37) U/L ALT 23 (16-63) U/L Alkaline Phosphatase 74 (46-116) U/L Total Protein 7.9 (6.4-8.2) g/dl Albumin 4.6 (3.4-5.0) g/dl Globulin 3.3 gm/dL Albumin/Globulin Ratio 1.4 (1-2) Urine Color (Yellow) Urine Appearance (Clear) Urine pH (5.0-8.0) Ur Specific [place] (1.005-1.030) Urine Protein (Negative) Urine Glucose (UA) (Negative) Urine Ketones (Negative) Urine Occult Blood (Negative) Urine Nitrite (Negative) Urine Bilirubin (Negative) Urine Urobilinogen (0.2-1.0) Ur Leukocyte Esterase (Negative) Urine Opiates Screen (LEROWV=613) Ur Buprenorphine Scrn (CUTOFF=10) Ur Oxycodone Screen (IRX1XH=083) Urine Methadone Screen (FKE5WZ=044) Ur Propoxyphene Screen (QRFLHB=741) Ur Barbiturates Screen (JXMMKT=026) Ur Tricyclics Screen (TUOPNZ=404) Ur Phencyclidine Scrn (CUTOFF=25) Ur Amphetamine Screen (TXTIHE=157) U Methamphetamines Scrn (TPNYDN=687) U Benzodiazepines Scrn (USEBOV=450) U Cocaine Metab Screen (FVDXRR=314) U Marijuana (THC) Screen (CUTOFF=50) Ethyl Alcohol (0.00) gm% Ketones (0.0-0.3) mM 10/06/19 10/06/19 10/06/19 Range/Units 22:30 22:30 23:40 WBC (4.23-9.07) K/mm3 RBC (4.63-6.08) M/mm3 Hgb (13.7-17.5) gm/dl Hct (40.1-51.0) % MCV (79.0-92.2) fl MCH (25.7-32.2) pg MCHC (32.2-35.5) g/dl RDW Std Deviation (35.1-43.9) fL Plt Count (163-337) K/mm3 MPV (9.4-12.3) fl Neutrophils % (Manual) (40-60) % Band Neutrophils % (0-10) % Lymphocytes % (Manual) (20-40) % Atypical Lymphs % % Monocytes % (Manual) (2-10) % Eosinophils % (Manual) (0.8-7.0) % Basophils % (Manual) (0.2-1.2) Platelet Estimate RBC Morph Comment ABG pH (7.35-7.45) ABG pCO2 (35.0-45.0) mmHg ABG HCO3 (22.0-26.0) meq/L ABG Base Excess (-2-2.0) O2 Delivery Device FiO2 (21.00-100.00) % Blood Gas Comments Sodium (136-145) mEq/L Potassium (3.5-5.1) mEq/L Chloride (98-107) mEq/L Carbon Dioxide (21-32) mEq/L Anion Gap (5-15) BUN (7-18) mg/dL Creatinine (0.7-1.3) mg/dL Est Cr Clr Drug Dosing mL/min Estimated GFR (MDRD) (>60) mL/min BUN/Creatinine Ratio (14-18) Glucose (74-106) mg/dL POC Glucose 364 H (70-105) mg/dL Lactic Acid (0.4-2.0) mmol/L Calcium (8.5-10.1) mg/dL Total Bilirubin (0.2-1.0) mg/dL AST (15-37) U/L ALT (16-63) U/L Alkaline Phosphatase (46-116) U/L Total Protein (6.4-8.2) g/dl Albumin (3.4-5.0) g/dl Globulin gm/dL Albumin/Globulin Ratio (1-2) Urine Color (Yellow) Urine Appearance (Clear) Urine pH (5.0-8.0) Ur Specific [place] (1.005-1.030) Urine Protein (Negative) Urine Glucose (UA) (Negative) Urine Ketones (Negative) Urine Occult Blood (Negative) Urine Nitrite (Negative) Urine Bilirubin (Negative) Urine Urobilinogen (0.2-1.0) Ur Leukocyte Esterase (Negative) Urine Opiates Screen (PKZQUX=557) Ur Buprenorphine Scrn (CUTOFF=10) Ur Oxycodone Screen (EYG0WY=678) Urine Methadone Screen (HTP8OT=989) Ur Propoxyphene Screen (IBSLAX=312) Ur Barbiturates Screen (OZCCVY=375) Ur Tricyclics Screen (YHJOGV=107) Ur Phencyclidine Scrn (CUTOFF=25) Ur Amphetamine Screen (JJDXXR=535) U Methamphetamines Scrn (JEXCVJ=904) U Benzodiazepines Scrn (KXXPAF=317) U Cocaine Metab Screen (AOVYCR=410) U Marijuana (THC) Screen (CUTOFF=50) Ethyl Alcohol 0.00 (0.00) gm% Ketones 6.72 (0.0-0.3) mM 10/07/19 10/07/19 10/07/19 Range/Units 00:06 00:15 00:50 WBC (4.23-9.07) K/mm3 RBC (4.63-6.08) M/mm3 Hgb (13.7-17.5) gm/dl Hct (40.1-51.0) % MCV (79.0-92.2) fl MCH (25.7-32.2) pg MCHC (32.2-35.5) g/dl RDW Std Deviation (35.1-43.9) fL Plt Count (163-337) K/mm3 MPV (9.4-12.3) fl Neutrophils % (Manual) (40-60) % Band Neutrophils % (0-10) % Lymphocytes % (Manual) (20-40) % Atypical Lymphs % % Monocytes % (Manual) (2-10) % Eosinophils % (Manual) (0.8-7.0) % Basophils % (Manual) (0.2-1.2) Platelet Estimate RBC Morph Comment ABG pH 7.34 L (7.35-7.45) ABG pCO2 22.8 L (35.0-45.0) mmHg ABG HCO3 12 L (22.0-26.0) meq/L ABG Base Excess -12.2 L (-2-2.0) O2 Delivery Device Room air FiO2 21.00 (21.00-100.00) % Blood Gas Comments Venous sample Sodium (136-145) mEq/L Potassium (3.5-5.1) mEq/L Chloride (98-107) mEq/L Carbon Dioxide (21-32) mEq/L Anion Gap (5-15) BUN (7-18) mg/dL Creatinine (0.7-1.3) mg/dL Est Cr Clr Drug Dosing mL/min Estimated GFR (MDRD) (>60) mL/min BUN/Creatinine Ratio (14-18) Glucose (74-106) mg/dL POC Glucose 333 H (70-105) mg/dL Lactic Acid (0.4-2.0) mmol/L Calcium (8.5-10.1) mg/dL Total Bilirubin (0.2-1.0) mg/dL AST (15-37) U/L ALT (16-63) U/L Alkaline Phosphatase (46-116) U/L Total Protein (6.4-8.2) g/dl Albumin (3.4-5.0) g/dl Globulin gm/dL Albumin/Globulin Ratio (1-2) Urine Color Light yellow (Yellow) Urine Appearance Clear (Clear) Urine pH 6.0 (5.0-8.0) Ur Specific [place] 1.020 (1.005-1.030) Urine Protein Negative (Negative) Urine Glucose (UA) 2+ H (Negative) Urine Ketones 4+ H (Negative) Urine Occult Blood Negative (Negative) Urine Nitrite Negative (Negative) Urine Bilirubin Negative (Negative) Urine Urobilinogen 0.2 (0.2-1.0) Ur Leukocyte Esterase Negative (Negative) Urine Opiates Screen (QJZTKR=464) Ur Buprenorphine Scrn (CUTOFF=10) Ur Oxycodone Screen (BHG4AE=144) Urine Methadone Screen (ZYV0CW=907) Ur Propoxyphene Screen (FNLOTW=295) Ur Barbiturates Screen (TVPNDA=865) Ur Tricyclics Screen (WLKMTZ=725) Ur Phencyclidine Scrn (CUTOFF=25) Ur Amphetamine Screen (HQRYFI=057) U Methamphetamines Scrn (BYOYYA=327) U Benzodiazepines Scrn (UHRCNJ=468) U Cocaine Metab Screen (GXMSFL=775) U Marijuana (THC) Screen (CUTOFF=50) Ethyl Alcohol (0.00) gm% Ketones (0.0-0.3) mM 06/01/20 06/01/20 06/01/20 Range/Units 00:50 00:53 01:35 WBC (4.23-9.07) K/mm3 RBC (4.63-6.08) M/mm3 Hgb (13.7-17.5) gm/dl Hct (40.1-51.0) % MCV (79.0-92.2) fl MCH (25.7-32.2) pg MCHC (32.2-35.5) g/dl RDW Std Deviation (35.1-43.9) fL Plt Count (163-337) K/mm3 MPV (9.4-12.3) fl Neutrophils % (Manual) (40-60) % Band Neutrophils % (0-10) % Lymphocytes % (Manual) (20-40) % Atypical Lymphs % % Monocytes % (Manual) (2-10) % Eosinophils % (Manual) (0.8-7.0) % Basophils % (Manual) (0.2-1.2) Platelet Estimate RBC Morph Comment ABG pH (7.35-7.45) ABG pCO2 (35.0-45.0) mmHg ABG HCO3 (22.0-26.0) meq/L ABG Base Excess (-2-2.0) O2 Delivery Device FiO2 (21.00-100.00) % Blood Gas Comments Sodium (136-145) mEq/L Potassium (3.5-5.1) mEq/L Chloride (98-107) mEq/L Carbon Dioxide (21-32) mEq/L Anion Gap (5-15) BUN (7-18) mg/dL Creatinine (0.7-1.3) mg/dL Est Cr Clr Drug Dosing mL/min Estimated GFR (MDRD) (>60) mL/min BUN/Creatinine Ratio (14-18) Glucose (74-106) mg/dL POC Glucose 310 H 341 H (70-105) mg/dL Lactic Acid (0.4-2.0) mmol/L Calcium (8.5-10.1) mg/dL Total Bilirubin (0.2-1.0) mg/dL AST (15-37) U/L ALT (16-63) U/L Alkaline Phosphatase (46-116) U/L Total Protein (6.4-8.2) g/dl Albumin (3.4-5.0) g/dl Globulin gm/dL Albumin/Globulin Ratio (1-2) Urine Color (Yellow) Urine Appearance (Clear) Urine pH (5.0-8.0) Ur Specific [place] (1.005-1.030) Urine Protein (Negative) Urine Glucose (UA) (Negative) Urine Ketones (Negative) Urine Occult Blood (Negative) Urine Nitrite (Negative) Urine Bilirubin (Negative) Urine Urobilinogen (0.2-1.0) Ur Leukocyte Esterase (Negative) Urine Opiates Screen Presumptive positive H (DQTGYI=900) Ur Buprenorphine Scrn Negative (CUTOFF=10) Ur Oxycodone Screen Negative (OZT8EQ=879) Urine Methadone Screen Negative (RUV3EU=827) Ur Propoxyphene Screen Negative (GBBLBZ=126) Ur Barbiturates Screen Negative (RXRIVX=732) Ur Tricyclics Screen Negative (BFQGQT=787) Ur Phencyclidine Scrn Negative (CUTOFF=25) Ur Amphetamine Screen Negative (CODWLH=134) U Methamphetamines Scrn Negative (FLEOQC=636) U Benzodiazepines Scrn Negative (ZDZRWQ=297) U Cocaine Metab Screen Negative (WGRULU=845) U Marijuana (THC) Screen Negative (CUTOFF=50) Ethyl Alcohol (0.00) gm% Ketones (0.0-0.3) mM 10/07/19 10/07/19 10/07/19 Range/Units 02:15 03:05 03:05 WBC (4.23-9.07) K/mm3 RBC (4.63-6.08) M/mm3 Hgb (13.7-17.5) gm/dl Hct (40.1-51.0) % MCV (79.0-92.2) fl MCH (25.7-32.2) pg MCHC (32.2-35.5) g/dl RDW Std Deviation (35.1-43.9) fL Plt Count (163-337) K/mm3 MPV (9.4-12.3) fl Neutrophils % (Manual) (40-60) % Band Neutrophils % (0-10) % Lymphocytes % (Manual) (20-40) % Atypical Lymphs % % Monocytes % (Manual) (2-10) % Eosinophils % (Manual) (0.8-7.0) % Basophils % (Manual) (0.2-1.2) Platelet Estimate RBC Morph Comment ABG pH (7.35-7.45) ABG pCO2 (35.0-45.0) mmHg ABG HCO3 (22.0-26.0) meq/L ABG Base Excess (-2-2.0) O2 Delivery Device FiO2 (21.00-100.00) % Blood Gas Comments Sodium (136-145) mEq/L Potassium 4.0 (3.5-5.1) mEq/L Chloride (98-107) mEq/L Carbon Dioxide (21-32) mEq/L Anion Gap (5-15) BUN (7-18) mg/dL Creatinine (0.7-1.3) mg/dL Est Cr Clr Drug Dosing mL/min Estimated GFR (MDRD) (>60) mL/min BUN/Creatinine Ratio (14-18) Glucose 396 H 317 H (74-106) mg/dL POC Glucose (70-105) mg/dL Lactic Acid 2.5 H* (0.4-2.0) mmol/L Calcium (8.5-10.1) mg/dL Total Bilirubin (0.2-1.0) mg/dL AST (15-37) U/L ALT (16-63) U/L Alkaline Phosphatase (46-116) U/L Total Protein (6.4-8.2) g/dl Albumin (3.4-5.0) g/dl Globulin gm/dL Albumin/Globulin Ratio (1-2) Urine Color (Yellow) Urine Appearance (Clear) Urine pH (5.0-8.0) Ur Specific [place] (1.005-1.030) Urine Protein (Negative) Urine Glucose (UA) (Negative) Urine Ketones (Negative) Urine Occult Blood (Negative) Urine Nitrite (Negative) Urine Bilirubin (Negative) Urine Urobilinogen (0.2-1.0) Ur Leukocyte Esterase (Negative) Urine Opiates Screen (KOXJWC=397) Ur Buprenorphine Scrn (CUTOFF=10) Ur Oxycodone Screen (TDL0DT=657) Urine Methadone Screen (RXX7AX=821) Ur Propoxyphene Screen (LTCVLF=655) Ur Barbiturates Screen (BZGLNV=290) Ur Tricyclics Screen (CDSPOX=258) Ur Phencyclidine Scrn (CUTOFF=25) Ur Amphetamine Screen (UJAUNY=072) U Methamphetamines Scrn (NWSFOF=353) U Benzodiazepines Scrn (UUVGCT=557) U Cocaine Metab Screen (JFITFQ=872) U Marijuana (THC) Screen (CUTOFF=50) Ethyl Alcohol (0.00) gm% Ketones (0.0-0.3) mM 10/07/19 10/07/19 10/07/19 Range/Units 03:05 03:20 04:09 WBC (4.23-9.07) K/mm3 RBC (4.63-6.08) M/mm3 Hgb (13.7-17.5) gm/dl Hct (40.1-51.0) % MCV (79.0-92.2) fl MCH (25.7-32.2) pg MCHC (32.2-35.5) g/dl RDW Std Deviation (35.1-43.9) fL Plt Count (163-337) K/mm3 MPV (9.4-12.3) fl Neutrophils % (Manual) (40-60) % Band Neutrophils % (0-10) % Lymphocytes % (Manual) (20-40) % Atypical Lymphs % % Monocytes % (Manual) (2-10) % Eosinophils % (Manual) (0.8-7.0) % Basophils % (Manual) (0.2-1.2) Platelet Estimate RBC Morph Comment ABG pH (7.35-7.45) ABG pCO2 (35.0-45.0) mmHg ABG HCO3 (22.0-26.0) meq/L ABG Base Excess (-2-2.0) O2 Delivery Device FiO2 (21.00-100.00) % Blood Gas Comments Sodium (136-145) mEq/L Potassium (3.5-5.1) mEq/L Chloride (98-107) mEq/L Carbon Dioxide (21-32) mEq/L Anion Gap (5-15) BUN (7-18) mg/dL Creatinine (0.7-1.3) mg/dL Est Cr Clr Drug Dosing mL/min Estimated GFR (MDRD) (>60) mL/min BUN/Creatinine Ratio (14-18) Glucose (74-106) mg/dL POC Glucose 274 H 226 H (70-105) mg/dL Lactic Acid (0.4-2.0) mmol/L Calcium (8.5-10.1) mg/dL Total Bilirubin (0.2-1.0) mg/dL AST (15-37) U/L ALT (16-63) U/L Alkaline Phosphatase (46-116) U/L Total Protein (6.4-8.2) g/dl Albumin (3.4-5.0) g/dl Globulin gm/dL Albumin/Globulin Ratio (1-2) Urine Color (Yellow) Urine Appearance (Clear) Urine pH (5.0-8.0) Ur Specific [place] (1.005-1.030) Urine Protein (Negative) Urine Glucose (UA) (Negative) Urine Ketones (Negative) Urine Occult Blood (Negative) Urine Nitrite (Negative) Urine Bilirubin (Negative) Urine Urobilinogen (0.2-1.0) Ur Leukocyte Esterase (Negative) Urine Opiates Screen (SVCNFU=730) Ur Buprenorphine Scrn (CUTOFF=10) Ur Oxycodone Screen (FQU4YS=750) Urine Methadone Screen (NGU0RX=279) Ur Propoxyphene Screen (DHIJHQ=033) Ur Barbiturates Screen (HCMMTK=491) Ur Tricyclics Screen (ZQJTIO=892) Ur Phencyclidine Scrn (CUTOFF=25) Ur Amphetamine Screen (DSWUJT=761) U Methamphetamines Scrn (PLPSTA=612) U Benzodiazepines Scrn (KOPYTG=184) U Cocaine Metab Screen (PLKBOU=983) U Marijuana (THC) Screen (CUTOFF=50) Ethyl Alcohol (0.00) gm% Ketones 6.42 (0.0-0.3) mM 10/07/19 10/07/19 10/07/19 Range/Units 04:44 05:23 06:03 WBC (4.23-9.07) K/mm3 RBC (4.63-6.08) M/mm3 Hgb (13.7-17.5) gm/dl Hct (40.1-51.0) % MCV (79.0-92.2) fl MCH (25.7-32.2) pg MCHC (32.2-35.5) g/dl RDW Std Deviation (35.1-43.9) fL Plt Count (163-337) K/mm3 MPV (9.4-12.3) fl Neutrophils % (Manual) (40-60) % Band Neutrophils % (0-10) % Lymphocytes % (Manual) (20-40) % Atypical Lymphs % % Monocytes % (Manual) (2-10) % Eosinophils % (Manual) (0.8-7.0) % Basophils % (Manual) (0.2-1.2) Platelet Estimate RBC Morph Comment ABG pH (7.35-7.45) ABG pCO2 (35.0-45.0) mmHg ABG HCO3 (22.0-26.0) meq/L ABG Base Excess (-2-2.0) O2 Delivery Device FiO2 (21.00-100.00) % Blood Gas Comments Sodium (136-145) mEq/L Potassium (3.5-5.1) mEq/L Chloride (98-107) mEq/L Carbon Dioxide (21-32) mEq/L Anion Gap (5-15) BUN (7-18) mg/dL Creatinine (0.7-1.3) mg/dL Est Cr Clr Drug Dosing mL/min Estimated GFR (MDRD) (>60) mL/min BUN/Creatinine Ratio (14-18) Glucose (74-106) mg/dL POC Glucose 181 H 202 H 231 H (70-105) mg/dL Lactic Acid (0.4-2.0) mmol/L Calcium (8.5-10.1) mg/dL Total Bilirubin (0.2-1.0) mg/dL AST (15-37) U/L ALT (16-63) U/L Alkaline Phosphatase (46-116) U/L Total Protein (6.4-8.2) g/dl Albumin (3.4-5.0) g/dl Globulin gm/dL Albumin/Globulin Ratio (1-2) Urine Color (Yellow) Urine Appearance (Clear) Urine pH (5.0-8.0) Ur Specific [place] (1.005-1.030) Urine Protein (Negative) Urine Glucose (UA) (Negative) Urine Ketones (Negative) Urine Occult Blood (Negative) Urine Nitrite (Negative) Urine Bilirubin (Negative) Urine Urobilinogen (0.2-1.0) Ur Leukocyte Esterase (Negative) Urine Opiates Screen (KWWTKH=831) Ur Buprenorphine Scrn (CUTOFF=10) Ur Oxycodone Screen (UBP4AF=482) Urine Methadone Screen (MKC3NE=117) Ur Propoxyphene Screen (SZIFBV=049) Ur Barbiturates Screen (JCUTHW=380) Ur Tricyclics Screen (YNSGYJ=610) Ur Phencyclidine Scrn (CUTOFF=25) Ur Amphetamine Screen (EKWRBQ=676) U Methamphetamines Scrn (HTUTWZ=814) U Benzodiazepines Scrn (TWGSQI=693) U Cocaine Metab Screen (MGLOUD=956) U Marijuana (THC) Screen (CUTOFF=50) Ethyl Alcohol (0.00) gm% Ketones (0.0-0.3) mM Meds: Medications Generic Name Dose Route Start Last Admin Trade Name Freq PRN Reason Stop Dose Admin Potassium Chloride/Sodium Chloride 1,000 mls @ 500 mls/hr 10/07/19 00:45 05/27 00:54 Normal Saline With 20 Meq Kcl IV 500 mls/hr ASDIRECTED AVINASH Administration Potassium Chloride/Sodium Chloride 1,000 mls @ 500 mls/hr 10/07/19 03:08 05/27 03:12 Normal Saline With 20 Meq Kcl IV 500 mls/hr ASDIRECTED AVINASH Administration Sodium Chloride 1,000 mls @ 500 mls/hr 10/07/19 04:00 10/07/19 04:05 Normal Saline IV 500 mls/hr ASDIRECTED AVINASH Administration Dextrose/Sodium Chloride 1,000 mls @ 250 mls/hr 10/07/19 05:00 10/07/19 04:59 Dextrose 5%-Normal Saline IV 250 mls/hr ASDIRECTED AVINASH Administration Potassium Chloride 10 meq/ 100 mls @ 100 mls/hr 10/07/19 05:00 10/07/19 04:59 Premix IV 100 mls/hr ASDIRECTED AVINASH Administration Discontinued Medications Generic Name Dose Route Start Last Admin Trade Name Freq PRN Reason Stop Dose Admin Al Hydroxide/Mg Hydroxide 30 0 ml 10/07/19 02:36 ml/ Lidocaine HCl 15 ml PO 10/07/19 02:37 ONETIME ONE Fentanyl 50 mcg 10/07/19 02:36 Sublimaze IVPUSH 10/07/19 02:37 ONETIME ONE Sodium Chloride 1,000 mls @ 999 mls/hr 10/06/19 23:31 10/06/19 23:37 Normal Saline IV 10/07/19 00:31 999 mls/hr ONETIME ONE Administration Insulin Human Regular 7 unit 10/06/19 22:32 10/06/19 22:49 Humulin R IV 10/06/19 22:33 7 unit ONETIME ONE Administration Insulin Human Regular 7 unit 10/07/19 02:19 10/07/19 02:24 Humulin R IV 10/07/19 02:20 7 unit ONETIME ONE Administration Insulin Human Regular 8 unit 10/07/19 02:28 10/07/19 02:29 Humulin R IV 10/07/19 02:29 8 unit ONETIME ONE Administration Ondansetron HCl 4 mg 10/07/19 01:18 10/07/19 01:22 Zofran Odt PO 10/07/19 01:19 4 mg ONETIME ONE Administration Ondansetron HCl 4 mg 10/07/19 01:44 10/07/19 01:49 Zofran IVPUSH 10/07/19 01:45 4 mg ONETIME ONE Administration Ondansetron HCl 4 mg 10/07/19 02:37 Zofran IVPUSH 10/07/19 02:38 ONETIME ONE - Re-Assessments/Exams Free Text/Narrative Re-Assessment/Exam: 10/07/19 06:34 We were finally able to determine that the patient's insulin pump is working.. His initial ketones was 6 pH on a venous gas was 7.34 probably normal he was given an insulin bolus of 7 units IV and his blood sugars did come down. Lactic acid was 2.4 at this point we are waiting on follow-up ketones and lactic acid his blood sugar seem to have stabilized around 200. I did initially on NS and then NS with potassium now is getting D5 NS and 10 mEq potassium this last hour. 10/07/19 06:44 Lab was then to draw his last blood to make sure his potassium is normal see if his ketones have come down however it was a difficult stick and at this point the patient is refusing any more sticks. He would like to go home. I have advised he follow-up with his peer educator and his regular provider and we will discharge him home. Also advised him to keep a very close eye on his blood sugars for the next 8 hours. Departure - Departure Time of Disposition: 06:45 Disposition: Home, Self-Care 01 Clinical Impression: Hyperglycemia, Type 1 diabetes - Discharge Information Referrals: PCP,None [Primary Care Provider] - Forms: ED Department Discharge Additional Instructions: Return to the emergency room with any questions problems or worsening symptoms. Follow-up with your peer educator and your regular provider this week. Keep a very close eye on your blood sugars for the next 8 hours or so. Sepsis Event Note - Evaluation Sepsis Screening Result: No Definite Risk - Focused Exam Vital Signs: Vital Signs Temp Pulse Resp BP Pulse Ox 10/06/19 21:49 36.8 C 100 18 111/75 95 Date Exam was Performed: 10/07/19 Time Exam was Performed: 06:25 - My Orders Last 24 Hours: My Active Orders 10/06/19 22:07 Blood Glucose Check, Bedside [RC] ONETIME 10/06/19 22:29 EKG Documentation Completion [RC] STAT 10/06/19 23:25 CULTURE BLOOD [BC] Stat Blood Culture x2 Reflex Set [OM.PC] Stat 10/06/19 23:38 ABG [RT Arterial Blood Gases, ABG] [RC] Click to Edit 10/06/19 23:53 CULTURE BLOOD [BC] Stat 10/07/19 00:45 NS + KCl 20mEq/L [Normal Saline with 20 mEq KCl] 1,000 ml IV ASDIRECTED 10/07/19 03:08 NS + KCl 20mEq/L [Normal Saline with 20 mEq KCl] 1,000 ml IV ASDIRECTED 10/07/19 04:00 Sodium Chloride 0.9% [Normal Saline] 1,000 ml IV ASDIRECTED 10/07/19 05:00 Dextrose 5%-0.9% NaCl [Dextrose 5%-Normal Saline] 1,000 ml IV ASDIRECTED Potassium Chloride [KCl 10 MEQ in Water 100 ML] 10 meq Premix Bag 1 bag IV ASDIRECTED 10/07/19 05:50 KETONES,BLOOD [CHEM] Stat POTASSIUM,K [CHEM] Stat - Assessment/Plan Last 24 Hours: My Active Orders 10/06/19 22:07 Blood Glucose Check, Bedside [RC] ONETIME 10/06/19 22:29 EKG Documentation Completion [RC] STAT 10/06/19 23:25 CULTURE BLOOD [BC] Stat Blood Culture x2 Reflex Set [OM.PC] Stat 10/06/19 23:38 ABG [RT Arterial Blood Gases, ABG] [RC] Click to Edit 10/06/19 23:53 CULTURE BLOOD [BC] Stat 10/07/19 00:45 NS + KCl 20mEq/L [Normal Saline with 20 mEq KCl] 1,000 ml IV ASDIRECTED 10/07/19 03:08 NS + KCl 20mEq/L [Normal Saline with 20 mEq KCl] 1,000 ml IV ASDIRECTED 10/07/19 04:00 Sodium Chloride 0.9% [Normal Saline] 1,000 ml IV ASDIRECTED 10/07/19 05:00 Dextrose 5%-0.9% NaCl [Dextrose 5%-Normal Saline] 1,000 ml IV ASDIRECTED Potassium Chloride [KCl 10 MEQ in Water 100 ML] 10 meq Premix Bag 1 bag IV ASDIRECTED 10/07/19 05:50 KETONES,BLOOD [CHEM] Stat POTASSIUM,K [CHEM] Stat
[2019-10-06] MEDS ORDERED: Insulin Regular, Human 100 Units/ML 3 ML Vial IV ONE (22:32)
[2019-10-06] MEDS ORDERED: Sodium Chloride 0.9% 1,000 ML IV ONE (23:31)
[2019-10-07] MEDS ORDERED: NS + KCl 20mEq/L 1,000 ML IV SCH ×2 (00:45→03:08)
[2019-10-07] MEDS ORDERED: Ondansetron 4 MG Tab.DIS PO ONE (01:18)
[2019-10-07] MEDS ORDERED: Ondansetron 4 MG/2 ML SDV IVPUSH ONE ×2 (01:44→02:37)
[2019-10-07] MEDS ORDERED: Insulin Regular, Human 100 Units/ML 3 ML Vial IV ONE ×2 (02:19→02:28)
[2019-10-07] MEDS ORDERED: Alum Hydrox/Mag Hydrox/Simeth 30 ML, Lidocaine 2% 15 ML PO ONE ×2 (02:36)
[2019-10-07] MEDS ORDERED: fentaNYL 100 MCG/2 ML SDV IVPUSH ONE (02:36)
[2019-10-07] MEDS ORDERED: Sodium Chloride 0.9% 1,000 ML IV SCH (04:00)
[2019-10-07] MEDS ORDERED: Dextrose 5%-0.9% NaCl 1,000 ML IV SCH (05:00)
[2019-10-07] MEDS ORDERED: Potassium Chloride 10 MEQ in Premix Bag 1 BAG IV SCH (05:00)
== END 2019-10-07 07:17 | disposition home or self-care (01) ==
LOC: JD.ED 21:42
DX: E10.65 Type 1 diabetes mellitus with hyperglycemia (principal); J45.909 Unspecified asthma, uncomplicated; F17.210 Nicotine dependence, cigarettes, uncomplicated
CPT/HCPCS: 36415; 36600; 80053; 80306; 80307; 81003; 82009; 82803; 82947; 82962; 83605; 84132; 85007; 85027; 87040; 93005; 96361; 96365; 96366; 96367; 96375; 99285; A9270; J1815; J2405; J3480; J7030; J7042; 93010; 99284